=== PATIENT | female | born 1990 | race Caucasian/White ===

== ENCOUNTER → 2019-11-05 12:38 | Outpatient (CLI) | payer OTHER, MEDICAID, SELFPAY ==
[2019-11-05 13:53] LABS: Add Manual Diff / Slide Review NO; Basophils Absolute Auto 100 /uL (0-100); Basophils Percent Auto 0.9 % (0-2); Eosinophils Absolute Auto 100 /uL (0-450); Eosinophils Percent Auto 1.2 % (2-4); Hematocrit 31.2 % (36-46); Hemoglobin 10.5 g/dL (12.0-16.0); Lymphocytes Absolute Auto 2700 /uL (1100-4500); Lymphocytes Percent Auto 26.2 % (25-40); Mean Corpuscular HGB Conc 33.7 % (30-36); Mean Corpuscular Hemoglobin 24.1 PG (26-34); Mean Corpuscular Volume 71.5 fL (80-100); Monocytes Absolute Auto 600 /uL (0-900); Monocytes Percent Auto 5.7 % (3-14); Neutrophils Absolute Auto 6800 /uL (1500-7000); Platelet Count 290 X10^3/uL (150-400); Red Blood Cell Count 4.36 X10^6/uL (4.0-5.2); Red Cell Distribution Width 15.7 % (11.6-14.8); White Blood Cell Count 10.3 X10^3/uL (4.5-11.0)
[2019-11-05 14:46] LABS: Bilirubin Urine UA NEGATIVE (NEGATIVE); Color Urine UA YELLOW; Glucose Urine UA NEGATIVE (Negative); Ketones Urine UA NEGATIVE (NEGATIVE); Leukocyte Esterase Urine UA NEGATIVE (NEGATIVE); Nitrite Urine UA NEGATIVE (Negative); Occult Blood Urine UA NEGATIVE (Negative); Protein Urine UA NEGATIVE (Negative); Urobilinogen Urine UA 0.2 E.U./dL (0.2)
[2019-11-05 14:54] LABS: Appearance Urine UA CLOUDY
[2019-11-05 15:58] LABS: Hepatitis B Surface Antigen NEGATIVE s/c (NEGATIVE); Rubella Antibody IgG 15.7 IU/mL (>15)
[2019-11-05 16:12] LABS: HIV 1 & 2 Ab/Ag 4th Gen Combo NEGATIVE (NEGATIVE); Hep C Virus Ab w/Reflex Quant NEGATIVE s/c (NEGATIVE)
[2019-11-07 18:59] LABS: RPR Screen Nonreactive (Nonreactive)
== END ==
PROVIDERS: PCP Family Medicine; Visit Provider Family Medicine
DX: Z34.82 Encounter for supervision of other normal pregnancy, second trimester (principal)
CPT/HCPCS: 36415; 80055; 81003; 86787; 86803; 86850; 86900; 86901; 87086; 87389

== ENCOUNTER → 2019-12-06 12:01 | Outpatient (CLI) | payer OTHER, MEDICAID, SELFPAY ==
--- NOTE | 2019-12-06 12:04 | DI.US.S_ITS ---
PROCEDURE: US OB >= 14 WEEKS FETUS INDICATIONS: ANATOMY OUTSIDE/PRIOR DATING DATA: Last menstrual period (LMP): 07/08/19. LMP-based estimated date of delivery (BECKI): 04/13/20. First dating scan (date and location): 12/06/19. Estimated date of delivery (BECKI) from first dating scan: 04/04/20. TECHNIQUE: Real-time scanning was performed of the fetus, with image documentation and biometric measurements. Endovaginal scanning: Not performed COMPARISON: None. FINDINGS: General: A single living intrauterine gestation is present. Presentation: Vertex. Placenta: Placental position is anterior, without previa. Amniotic fluid index: 14.8 cm, normal range is 5-24 cm. heart rate: 145 beats per minute. Maternal cervical canal: 3.7 cm long. Normal lower limit is 2.5 cm. biometrics: Biparietal diameter: 5.5 cm, 22 weeks 3 days Head circumference: 20.8 cm, 22 weeks 6 days Abdominal circumference: 18.4 cm, 23 weeks 2 days Femur length: 3.8 cm, 22 weeks 2 days Estimated gestational age from initial scan: not applicable. Composite gestational age from present scan: 22 weeks 6 days Estimated weight and percentile: 536 g, 95th percentile Measurement variability for biometric dating: +/- 7 days from 14 weeks to 15 weeks 6 days gestation, +/- 10 days from 16 weeks to 21 weeks 6 days gestation, +/- 2 weeks from 22 weeks to 27 weeks 6 days gestation, +/- 3 weeks for 28 weeks gestation or later. weight reference: 4500 g or EFW >90/95% is considered macrosomia or large for gestational age. EFW <10% is small for gestational age. EFW 5% or less is considered intra-uterine growth restriction. Anatomic survey: Neuro: Ventricles are non-dilated at less than 10 mm. Cisterna magna is normal at 3-11 mm. Cerebellum is normal in size and morphology. Nuchal skin fold: Normal at less than 6 mm between 14-21 weeks gestational age. Face: Nose/ lips grossly unremarkable . Facial profile not well seen due to gestational position. Spine: No evidence for spina bifida. Heart: 4-chambered heart is present, with normal ventricular outflow tracts. Diaphragm: Diaphragm is intact. Stomach: Left-sided stomach is present. Kidneys: Bilateral prominent renal pelves. Cord: 3-vessel cord has orthotopic insertion. Bladder: Normal in size. Extremities: All 4 extremities identified. IMPRESSION: Single living intrauterine fetus in vertex presentation Interval growth greater than expected based on reported LMP (95th percentile). If further growth assessment is clinically desired, recommend followup 3-4 week examination. facial profile not well-visualized. Bilateral renal pelviectasis. Recommend followup Dictated by: Zeferino Taveras M.D. on 12/06/2019 at 15:32 Approved by: Zeferino Taveras M.D. on 12/06/2019 at 15:37
== END ==
PROVIDERS: Referring Provider Family Medicine; Visit Provider Family Medicine
DX: Z34.92 Encounter for supervision of normal pregnancy, unspecified, second trimester (principal); Z3A.22 22 weeks gestation of pregnancy
CPT/HCPCS: 76811

== ENCOUNTER → 2020-01-17 08:53 | Outpatient (CLI) | payer OTHER, MEDICAID, SELFPAY ==
--- NOTE | 2020-01-17 08:56 | DI.US.S_ITS ---
PROCEDURE: US OB FOLLOW UP INDICATIONS: RE-EVALUATE FACE, KIDNEYS OUTSIDE/PRIOR DATING DATA: Last menstrual period (LMP): 07/08/19 LMP-based estimated date of delivery (BECKI): 04/13/20 First dating scan (date and location): 12/06/19 Estimated date of delivery (BECKI) from first dating scan: 04/04/20 TECHNIQUE: Real-time scanning was performed of the fetus, with image documentation. COMPARISON: [facility], , OB >= 14 WEEKS FETUS, 12/06/2019, 12:17. FINDINGS: A single living intrauterine gestation is present. Presentation: Vertex Placenta: Placental position is anterior, without previa. Amniotic fluid index: 13.7cm, normal range is 5-24 cm. heart rate: 150 beats per minute. Maternal cervical canal: 4.4 cm long. Normal lower limit is 2.5 cm. Estimated gestational age from initial scan: 28 weeks 6 days. face, nose/lips and profile are unremarkable. Persistent promient of bilateral renal pelvis. IMPRESSION: Anatomy is within normal limits. Dictated by: Lorri Bruner M.D. on 01/17/2020 at 12:55 Approved by: Lorri Bruner M.D. on 01/17/2020 at 13:44
[2020-01-17 10:37] LABS: Hematocrit 30.9 % (36-46); Hemoglobin 9.8 g/dL (12.0-16.0)
[2020-01-17 11:01] LABS: GTT (PREG) 1 Hour PP 50gm Dose 162 mg/dL (76-139)
== END ==
PROVIDERS: Referring Provider Family Medicine; Visit Provider Family Medicine
DX: Z36.2 Encounter for other antenatal screening follow-up (principal); Z3A.28 28 weeks gestation of pregnancy
CPT/HCPCS: 36415; 76816; 82950; 85014; 85018

== ENCOUNTER → 2020-02-01 08:53 | Outpatient (CLI) | payer OTHER, MEDICAID, SELFPAY ==
[2020-02-01 10:55] LABS: Glucose Fasting Gestational 82 mg/dL (76-95)
[2020-02-01 12:20] LABS: Glucose 2 Hour Gest 123 mg/dL (76-155)
[2020-02-01 12:22] LABS: Glucose 1 Hour Gest 161 mg/dL (76-180)
[2020-02-01 12:23] LABS: Glucose Tol Interp,Gestational INTERPRETATION
[2020-02-01 14:06] LABS: Glucose 3 Hour Gest 98 mg/dL (76-140)
== END ==
PROVIDERS: Referring Provider Family Medicine; Visit Provider Family Medicine
DX: R73.9 Hyperglycemia, unspecified (principal)
CPT/HCPCS: 36415; 82951; 82952

== ENCOUNTER → 2020-03-17 14:00 | Outpatient (CLI) | payer OTHER, MEDICAID, SELFPAY ==
[2020-03-18 10:19] LABS: Strep Grp B PCR NEG for Grp B Strep
== END ==
PROVIDERS: Visit Provider Family Medicine
DX: Z34.90 Encounter for supervision of normal pregnancy, unspecified, unspecified trimester (principal); Z3A.36 36 weeks gestation of pregnancy
CPT/HCPCS: 87653

== ENCOUNTER 2020-03-24 14:35 | Observation (INO) | payer OTHER, MEDICAID, SELFPAY ==
[2020-03-24 15:21] LABS: Add Manual Diff / Slide Review NO; Basophils Absolute Auto 100 /uL (0-100); Basophils Percent Auto 1.2 % (0-2); Eosinophils Absolute Auto 100 /uL (0-450); Eosinophils Percent Auto 0.9 % (2-4); Hematocrit 26.2 % (36-46); Hemoglobin 8.3 g/dL (12.0-16.0); Lymphocytes Absolute Auto 2200 /uL (1100-4500); Lymphocytes Percent Auto 22.3 % (25-40); Mean Corpuscular HGB Conc 31.7 % (30-36); Mean Corpuscular Volume 59.9 fL (80-100); Monocytes Absolute Auto 700 /uL (0-900); Monocytes Percent Auto 6.9 % (3-14); Neutrophils Absolute Auto 6900 /uL (1500-7000); Neutrophils Percent Auto 68.7 % (50-75); Platelet Count 278 X10^3/uL (150-400); Red Blood Cell Count 4.37 X10^6/uL (4.0-5.2); Red Cell Distribution Width 17.2 % (11.6-14.8); White Blood Cell Count 10.1 X10^3/uL (4.5-11.0)
[2020-03-24 15:32] LABS: Alanine Aminotransferase 11 IU/L (<35); Albumin 3.5 g/dL (3.5-5.0); Albumin Globulin Ratio 1.1 (1.0-2.8); Alkaline Phosphatase 229 U/L (38-126); Aspartate Aminotransferase 22 IU/L (14-36); Bilirubin Total 0.3 mg/dL (0.2-1.3); Blood Urea Nitrogen 7 mg/dL (7-17); Calcium 8.7 mg/dL (8.4-10.2); Carbon Dioxide 20 mmol/L (22-32); Chloride 103 mmol/L (98-107); Estimated Glomerular Filt Rate > 60.0 mL/min (>60); Globulin 3.1 g/dL (1.7-4.1); Glucose 81 mg/dL (70-100); HEMOLYSIS < 15 (0-50); Potassium 4.3 mmol/L (3.4-5.1); Sodium 131 mmol/L (137-145); Total Protein 6.6 g/dL (6.3-8.2)
[2020-03-24 15:39] LABS: Hypochromasia 1+; Microcytosis 2+; Poikilocytosis 1+
[2020-03-24 15:42] LABS: Creatinine Urine Random 59.7 mg/dL; Protein (Total) Urine Random 8 mg/dL (0-12); Protein Creatinine Ratio Urine 0.13 GRAM/24H
[2020-03-24] MEDS: ONDANSETRON 4 MG ODT SL (15:58)
--- NOTE | 2020-03-24 16:51 | PM.OBTRLD ---
Visit Information Visit Information Date of evaluation: 03/24/20 Primary OB Provider: Lashanda Finnegan Reason for Evaluation: Yes non-stress test non-stress test reason: hypertension/pre-eclampsia Comments/Additional reasons for admission: Patient came into the center complaining of a headache and lower extremity edema. Yesterday she had some double vision and her blood pressure with a friend's wrist cuff was 150/99. Today she continues with a headache but no vision changes. Her swelling is about the same. Denies contractions, vaginal bleeding or decreased movement. Vital Signs Vital Signs: Temperature 36.4? Initial blood pressure 144/94 with pulse of 111, repeat 10 minutes later 123/82 with pulse of 115. Subsequent blood pressures were normal and heart rate came down to the 90s. [facility] Medical History Feeling of sadness (Acute) Fracture of left patella (Acute) Surgical History [place] teeth extracted (Acute) Family History Mother Prediabetes Grandfather Acute alcohol abuse Grandmother Alzheimer disease Family/Other No problems noted. Social History marital status: unmarried,living together (Not living together) household members: significant other (Fairly new relationship) education level: high school occupational status: employed ([employer]) current occupational exposures/hazards: No special arjun needs: No Smoking Status: Former smoker (clove cigars X 5 years on and off) alcohol intake: former (Before ) substance use type: marijuana (Before ) Objective Labs Result Diagrams: 03/24/20 15:11 03/24/20 15:11 Labs: Laboratory Results - last 24 hr 03/24/20 03/24/20 03/24/20 15:11 15:11 15:11 WBC 10.1 RBC 4.37 Hgb 8.3 L Hct 26.2 L MCV 59.9 L MCH 19.0 L MCHC 31.7 RDW 17.2 H Plt Count 278 Neut % (Auto) 68.7 Lymph % (Auto) 22.3 L [place] % (Auto) 6.9 Eos % (Auto) 0.9 L Baso % (Auto) 1.2 Neut # (Auto) 6900 Lymph # (Auto) 2200 [place] # (Auto) 700 Eos # (Auto) 100 Baso # (Auto) 100 RBC Morphology Not Reportable Hypochromasia 1+ H Poikilocytosis 1+ H Microcytosis 2+ H Sodium 131 L Potassium 4.3 Chloride 103 Carbon Dioxide 20 L BUN 7 Creatinine 0.54 Estimated GFR > 60.0 BUN/Creatinine Ratio 13.0 Glucose 81 Calcium 8.7 Total Bilirubin 0.3 AST 22 ALT 11 Alkaline Phosphatase 229 H Total Protein 6.6 Albumin 3.5 Globulin 3.1 Albumin/Globulin Ratio 1.1 U Random Total Protein 8 Urine Creatinine 59.7 Protein/Creatinin Ratio 0.13 Evaluation Evaluation Baseline heart rate: 125 Variability: Moderate (11-25) monitor accelerations: Present monitor decelerations: Absent Laboratory results: Laboratory Tests 03/24/20 03/24/20 03/24/20 15:11 15:11 15:11 WBC 10.1 RBC 4.37 Hgb 8.3 L Hct 26.2 L MCV 59.9 L MCH 19.0 L MCHC 31.7 RDW 17.2 H Plt Count 278 Neut % (Auto) 68.7 Lymph % (Auto) 22.3 L Fountain % (Auto) 6.9 Eos % (Auto) 0.9 L Baso % (Auto) 1.2 Neut # (Auto) 6900 Lymph # (Auto) 2200 [place]ountain # (Auto) 700 Eos # (Auto) 100 Baso # (Auto) 100 RBC Morphology Not Reportable Hypochromasia 1+ H Poikilocytosis 1+ H Microcytosis 2+ H Sodium 131 L Potassium 4.3 Chloride 103 Carbon Dioxide 20 L BUN 7 Creatinine 0.54 Estimated GFR > 60.0 BUN/Creatinine Ratio 13.0 Glucose 81 Calcium 8.7 Total Bilirubin 0.3 AST 22 ALT 11 Alkaline Phosphatase 229 H Total Protein 6.6 Albumin 3.5 Globulin 3.1 Albumin/Globulin Ratio 1.1 U Random Total Protein 8 Urine Creatinine 59.7 Protein/Creatinin Ratio 0.13 Diagnosis, Plan/Disposition Final Diagnosis (1) 37 weeks gestation of : Status: Acute Plan/Disposition Plan: 30 year old at 37 weeks gestation with symptoms concerning for pre-eclampsia. Initial blood pressure was mildly elevated however repeat improved. Pre-eclampsia labs normal however patient was quite anemic. She has not been taking her vitamin or iron, only folate. She was instructed to start iron twice a day for the remainder of the . Return precautions given. Follow up as scheduled in three days or sooner if needed. OB Disposition: home
== END 2020-03-24 16:58 | disposition home or self-care (01) ==
PROVIDERS: Admitting Provider Family Medicine; Referring Provider Family Medicine; Visit Provider Family Medicine
DX: O13.3 Gestational [pregnancy-induced] hypertension without significant proteinuria, third trimester (principal); O99.013 Anemia complicating pregnancy, third trimester; R51 Headache; Z3A.37 37 weeks gestation of pregnancy
CPT/HCPCS: 36415; 59025; 59050; 80053; 82570; 84156; 85025; G0378; G0379

== ENCOUNTER → 2020-03-27 07:57 | Outpatient (CLI) | payer OTHER, MEDICAID, SELFPAY ==
[2020-03-27 09:19] LABS: Ferritin 6 ng/mL (6-137)
== END ==
PROVIDERS: Visit Provider Family Medicine
DX: O99.019 Anemia complicating pregnancy, unspecified trimester (principal)
CPT/HCPCS: 82728

== ENCOUNTER → 2020-03-27 12:40 | Outpatient (CLI) | payer OTHER, MEDICAID, SELFPAY ==
--- NOTE | 2020-03-27 12:41 | DI.US.S_ITS ---
PROCEDURE: US OB FOLLOW UP INDICATIONS: FOLLOW UP GROWTH AND PYLECTASIS OUTSIDE/PRIOR DATING DATA: Last menstrual period (LMP): 07/08/19 LMP-based estimated date of delivery (BECKI): 04/13/20 First dating scan (date and location): 12/06/19 Estimated date of delivery (BECKI) from first dating scan: 04/04/20. TECHNIQUE: Real-time scanning was performed of the fetus, with image documentation and biometric measurements. Endovaginal scanning: No COMPARISON: [facility], OB FOLLOW UP, 01/17/2020, 10:08. FINDINGS: General: A single living intrauterine gestation is present. Presentation: Vertex. Placenta: Placental position is anterior, without previa. Amniotic fluid index: 11.1 cm, normal range is 5-24 cm. heart rate: 135 beats per minute. Maternal cervical canal: 3.8 cm long. Normal lower limit is 2.5 cm. biometrics: Biparietal diameter: 38 weeks 0 days Head circumference: 39 weeks 5 days Abdominal circumference: 36 weeks 6 days Femur length: 37 weeks 1 day Estimated gestational age from initial scan: 38 weeks 6 days Composite gestational age from present scan: 30 weeks 0 days Estimated weight and percentile: 3196 g; 31st percentile Measurement variability for biometric dating: +/- 7 days from 14 weeks to 15 weeks 6 days gestation, +/- 10 days from 16 weeks to 21 weeks 6 days gestation, +/- 2 weeks from 22 weeks to 27 weeks 6 days gestation, +/- 3 weeks for 28 weeks gestation or later. weight reference: 4500 g or EFW >90/95% is considered macrosomia or large for gestational age. EFW <10% is small for gestational age. EFW 5% or less is considered intra-uterine growth restriction. Other: Renal pelvis within normal limits bilaterally. IMPRESSION: 1. Normal interval growth. 2. Renal pelvis within normal limits measuring up to 6 mm on the right and 4.4 mm on the left. Dictated by: Mango Bahena [facility] Interpreted: Adolfo Rae MD on 03/27/2020 at 16:35 Approved by: Adolfo Rae M.D. on 03/27/2020 at 17:39
== END ==
PROVIDERS: PCP Family Medicine; Referring Provider Family Medicine; Visit Provider Family Medicine
DX: O35.8XX0 Maternal care for other (suspected) fetal abnormality and damage, not applicable or unspecified (principal); Z3A.38 38 weeks gestation of pregnancy
CPT/HCPCS: 76816

== ENCOUNTER → 2020-03-27 15:13 | Oncology outpatient (ONC) | payer OTHER, MEDICAID, SELFPAY ==
[2020-03-27] MEDS: IRON SUCROSE 200 MG in SODIUM CHLORIDE 0.9% 100 ML 220 ML IV (15:29)
[2020-03-27 15:33] VITALS: BP 144/86; PULSE 125; RESP 18; TEMP 36.9; O2SAT 99
== END ==
LOC: ONC 15:14
PROVIDERS: PCP Family Medicine; Referring Provider Family Medicine; Visit Provider Family Medicine
DX: O99.013 Anemia complicating pregnancy, third trimester (principal); O35.8XX0 Maternal care for other (suspected) fetal abnormality and damage, not applicable or unspecified; D50.9 Iron deficiency anemia, unspecified; Z3A.37 37 weeks gestation of pregnancy
CPT/HCPCS: 76816; 82728; 96365; J1756

== ENCOUNTER 2020-04-06 12:00 | Outpatient (CLI) | payer OTHER, MEDICAID, SELFPAY ==
[2020-04-06 12:31] LABS: Add Manual Diff / Slide Review NO; Basophils Absolute Auto 100 /uL (0-100); Basophils Percent Auto 1.5 % (0-2); Eosinophils Absolute Auto 0 /uL (0-450); Eosinophils Percent Auto 0.6 % (2-4); Hematocrit 26.6 % (36-46); Hemoglobin 8.4 g/dL (12.0-16.0); Lymphocytes Absolute Auto 1900 /uL (1100-4500); Lymphocytes Percent Auto 26.8 % (25-40); Mean Corpuscular HGB Conc 31.8 % (30-36); Mean Corpuscular Hemoglobin 19.1 PG (26-34); Mean Corpuscular Volume 60.2 fL (80-100); Monocytes Absolute Auto 500 /uL (0-900); Monocytes Percent Auto 7.3 % (3-14); Neutrophils Absolute Auto 4600 /uL (1500-7000); Neutrophils Percent Auto 63.8 % (50-75); Platelet Count 236 X10^3/uL (150-400); Red Blood Cell Count 4.42 X10^6/uL (4.0-5.2); Red Cell Distribution Width 18.8 % (11.6-14.8); White Blood Cell Count 7.2 X10^3/uL (4.5-11.0)
[2020-04-06 12:42] LABS: Alanine Aminotransferase 11 IU/L (<35); Albumin 3.5 g/dL (3.5-5.0); Albumin Globulin Ratio 1.3 (1.0-2.8); Alkaline Phosphatase 233 U/L (38-126); Aspartate Aminotransferase 20 IU/L (14-36); BUN Creatinine Ratio 11.3 (6-22); Bilirubin Total 0.4 mg/dL (0.2-1.3); Blood Urea Nitrogen 6 mg/dL (7-17); Calcium 8.7 mg/dL (8.4-10.2); Carbon Dioxide 21 mmol/L (22-32); Chloride 104 mmol/L (98-107); Estimated Glomerular Filt Rate > 60.0 mL/min (>60); Globulin 2.8 g/dL (1.7-4.1); Glucose 78 mg/dL (70-100); HEMOLYSIS < 15 (0-50); Potassium 4.1 mmol/L (3.4-5.1); Sodium 132 mmol/L (137-145); Total Protein 6.3 g/dL (6.3-8.2)
[2020-04-06 12:49] LABS: Anisocytosis 1+
[2020-04-06 12:50] LABS: Hypochromasia 1+; Microcytosis 2+; Poikilocytosis 1+
--- NOTE | 2020-04-06 12:59 | PM.OBHP.1 ---
OB HPI Date/Time Date of admission: 04/06/20 Date Patient Seen: 04/06/20 Time Patient Seen: 12:59 History of Present Condition : 1 Para: 0 Estimated Date of Delivery: 04/13/20 Estimated Gestational Age (weeks): 39 Narrative: Tenisha Hernandez is a 30 year old at 39 weeks gestation. She presented for her regular clinic appointment today and was found to be quite hypertensive with an initial blood pressure of 162/96. Repeat returned at 138/100. She has developed significant edema in her feet and ankles since last visit but denies headache, vision changes or abdominal pain. She has been feeling well otherwise. Reports good movement and denies leaking or bleeding. complicated by anemia with difficulty taking iron supplements. She received an iron infusion 2 weeks ago and noted that she felt very good afterward. Dating is based on LMP as she declined a first-trimester ultrasound. There was some discrepancy between her LMP and dating based on second-trimester ultrasound however not enough to change her due date. Ultrasound was significant for mild pyelectasis which resolved on repeat imaging. Indications Indication for induction OB: other (Gestational hypertension) History of Present care: good care, initiated at week # (15), number of visits (8) and pounds weight gain (11) Dating criteria: based on LMP only Ultrasounds: abnormal US findings ( pyelectasis, resolved on follow-up imaging) Obstetrical complications: gestational hypertension and other (Anemia) Preadmission Labs Blood type: O (+) positive -: Antibody screen: negative, GBS status: negative, HBsAG: negative, HIV: negative and RPR/VDLR: negative -: Rubella: immune and Varicella: immune HCT: 31.2 HCAB: negative Urine: Negative 1 hr GTT: 162 3 hr GTT: 1 hr (161), 2 hr (123) and 3 hr (98) Fasting blood glucose: 82 Evaluation Evaluation Baseline heart rate: 120 Variability: Moderate (11-25) monitor accelerations: Present monitor decelerations: Absent Category of Tracing: I Cervical dilation (cm): 1 Cervical effacement (%): 60 station: -2 Laboratory results: Laboratory Tests 04/06/20 04/06/20 12:15 12:15 WBC 7.2 RBC 4.42 Hgb 8.4 L Hct 26.6 L MCV 60.2 L MCH 19.1 L MCHC 31.8 RDW 18.8 H Plt Count 236 Neut % (Auto) 63.8 Lymph % (Auto) 26.8 Bledsoe % (Auto) 7.3 Eos % (Auto) 0.6 L Baso % (Auto) 1.5 Neut # (Auto) 4600 Lymph # (Auto) 1900 Bledsoe # (Auto) 500 Eos # (Auto) 0 Baso # (Auto) 100 RBC Morphology See below Hypochromasia 1+ H Poikilocytosis 1+ H Anisocytosis 1+ H Microcytosis 2+ H Sodium 132 L Potassium 4.1 Chloride 104 Carbon Dioxide 21 L BUN 6 L Creatinine 0.53 Estimated GFR > 60.0 BUN/Creatinine Ratio 11.3 Glucose 78 Calcium 8.7 Total Bilirubin 0.4 AST 20 ALT 11 Alkaline Phosphatase 233 H Total Protein 6.3 Albumin 3.5 Globulin 2.8 Albumin/Globulin Ratio 1.3 PFSH Medical History Feeling of sadness (Acute) Fracture of left patella (Acute) Surgical History [place] teeth extracted (Acute) Family History Mother Prediabetes Grandfather Acute alcohol abuse Grandmother Alzheimer disease Family/Other No problems noted. Social History marital status: unmarried,living together (Not living together) household members: significant other (Fairly new relationship) education level: high school occupational status: employed ([employer]) current occupational exposures/hazards: No special arjun needs: No Smoking Status: Former smoker (clove cigars X 5 years on and off) alcohol intake: former (Before ) substance use type: marijuana (Before ) Meds Home Medications and Allergies Allergies Allergy/AdvReac Type Severity Reaction Status Date / Time No Known Drug Allergies Allergy Verified 03/17/20 13:28 Review of Systems Review of Systems ROS: Yes All systems reviewed with the patient and are negative except as otherwise documented Exam Vital Signs (past 8 hours): Blood pressures range 130s to 140s over 80s Const General: healthy appearing and comfortable HENMT Head: normal to inspection Ears: hearing grossly normal bilaterally Nose: external nose normal Face and sinus: normal facial exam Mouth: oral mucosae normal Eyes General: appearance normal, both eyes and all related structures Neck Neck: normal visual inspection Resp Effort & Inspection: normal respiratory effort Cardio Rate: regular rate Rhythm: regular rhythm GI Other: Gravid External Female Exam: normal external appearance Manual OB Exam: dilated 1, effaced 50% (60) and station -2 Uterus Location (Fundal Height): 39 Presentation: vertex Estimated Weight (lbs): 7 Back/Spine/Pelvis Back: normal to inspection Skin General: no rashes or lesions noted Extrem General: normal to inspection, no pedal edema and edema (1+ bilaterally) Objective Labs Result Diagrams: 04/06/20 12:15 04/06/20 12:15 Labs: Laboratory Results - last 24 hr 04/06/20 04/06/20 12:15 12:15 WBC 7.2 RBC 4.42 Hgb 8.4 L Hct 26.6 L MCV 60.2 L MCH 19.1 L MCHC 31.8 RDW 18.8 H Plt Count 236 Neut % (Auto) 63.8 Lymph % (Auto) 26.8 Bledsoe % (Auto) 7.3 Eos % (Auto) 0.6 L Baso % (Auto) 1.5 Neut # (Auto) 4600 Lymph # (Auto) 1900 Bledsoe # (Auto) 500 Eos # (Auto) 0 Baso # (Auto) 100 RBC Morphology See below Hypochromasia 1+ H Poikilocytosis 1+ H Anisocytosis 1+ H Microcytosis 2+ H Sodium 132 L Potassium 4.1 Chloride 104 Carbon Dioxide 21 L BUN 6 L Creatinine 0.53 Estimated GFR > 60.0 BUN/Creatinine Ratio 11.3 Glucose 78 Calcium 8.7 Total Bilirubin 0.4 AST 20 ALT 11 Alkaline Phosphatase 233 H Total Protein 6.3 Albumin 3.5 Globulin 2.8 Albumin/Globulin Ratio 1.3 Assessment and Plan Assessment and Plan Assessment and Plan narrative: Patient is a 30-year-old at 39 weeks gestation with gestational hypertension. Labs reassuring against preeclampsia. GBS negative. Rapid COVID-19 negative. has been complicated by severe anemia with iron infusion at the end of . Patient agrees to blood transfusion if needed. Will admit for induction for gestational hypertension. Discuss risks associated with induction such as , operative vaginal delivery, distress and long labor. Patient was given the opportunity to ask questions and all questions were answered. Consent signed and placed in the chart. Plan is for Cervidil overnight followed by Pitocin in the morning. Epidural upon request.
[2020-04-06 14:33] LABS: COVID19 -Nasal RAPID Negative (Negative)
== END 2020-04-06 13:35 | disposition home or self-care (01) ==
LOC: LABOR 12:40 → OB 04-07 10:54
PROVIDERS: PCP Family Medicine; Referring Provider Family Medicine; Visit Provider Family Medicine
DX: O13.3 Gestational [pregnancy-induced] hypertension without significant proteinuria, third trimester (principal); O99.013 Anemia complicating pregnancy, third trimester; Z3A.39 39 weeks gestation of pregnancy
CPT/HCPCS: 36415; 59025; 59050; 80053; 85025; 87635; G0378; G0379

== ENCOUNTER 2020-04-06 20:10 | Inpatient (IN) | payer OTHER, MEDICAID, SELFPAY ==
[2020-04-06 21:22] VITALS: BP 133/84
[2020-04-07] MEDS: DINOPROSTONE VAG (CERVIDIL) 10 MG VAG
--- NOTE | 2020-04-07 08:10 | PM.OBPNLAB ---
Date/Time Date Patient Seen: 04/07/20 Time Patient Seen: 07:45 Pain Control Comments: Patient denies complaints. She has been feeling crampy all night and only slept a few hours. Denies leaking or bleeding. Denies headache or vision changes. Edema is little better this morning but still very much there. Exam General: Sitting up in bed, comfortable Heart: Regular rate and rhythm, no murmurs Lungs: Clear to auscultation bilaterally : SVE below Extremities: 1+ edema bilaterally Pelvic Exam Dilation (cm): 2 Effacement (%): 75 station: -2 Amniotic membrane status: Intact Contractions Monitor mode: External Contraction frequency (min): 3 Contraction intensity: Mild Status status: Category l Heart Rate Baseline: 130 Monitor Accelerations: Present Monitor Decelerations: Absent Monitor Variability: Moderate Assessment and Plan Plan: begin patient augmentation Comments: Patient is a 30-year-old at 39 weeks and 1 day gestation here for induction for gestational hypertension. Blood pressures were normal overnight and she is asymptomatic. On exam this morning Cervidil was found low in the vagina so was removed. Torres score this morning is 7. Will start Pitocin.
[2020-04-07] MEDS: LACTATED RINGERS 1,000 ML 100 ML IV ×2 (08:47→17:46)
[2020-04-07] MEDS: OXYTOCIN PREMIX 30 UNIT/500 ML PLAST..BAG IV (08:48)
--- NOTE | 2020-04-07 13:01 | PM.OBPNLAB ---
Date/Time Date Patient Seen: 04/07/20 Time Patient Seen: 12:45 Pain Control Pain control: tolerating well Pelvic Exam Dilation (cm): 3 Effacement (%): 80 station: -2 Amniotic membrane status: Ruptured (AROM small amount of clear fluid) Contractions Monitor mode: External Pitocin rate (mU/min): 18 Contraction frequency (min): 2 Contraction pattern: Regular Contraction intensity: Mild Status status: Category l Heart Rate Baseline: 125 Monitor Accelerations: Present Monitor Decelerations: Absent Monitor Variability: Moderate Assessment and Plan Assessment: induction ongoing Plan: continuous present management Comments: AROM for scant amount of clear fluid. Limit cervical exams. Continue pitocin. Patient desires natural childbirth.
--- NOTE | 2020-04-07 16:59 | PM.OBPNLAB ---
Date/Time Date Patient Seen: 04/07/20 Time Patient Seen: 16:50 Pain Control Pain control: tolerating well Comments: More uncomfortable but tolerating labor well. Leaking small amounts of fluid. Pelvic Exam Dilation (cm): 5 Effacement (%): 90 station: -2 Amniotic membrane status: Ruptured (AROM small amount of clear fluid) Contractions Monitor mode: External Pitocin rate (mU/min): 18 Contraction frequency (min): 3 Contraction pattern: Regular Status status: Category l Heart Rate Baseline: 120 Monitor Accelerations: Present Monitor Decelerations: Absent Monitor Variability: Moderate Assessment and Plan Assessment: active labor Plan: continuous present management Comments: Patient is coping well and entering active labor. Repeat AROM with small amount of clear fluid.
--- NOTE | 2020-04-07 22:18 | PM.OBPNLAB ---
Date/Time Date Patient Seen: 04/07/20 Time Patient Seen: 22:18 Pain Control Comments: RN went in for SVE however patient declines wanting to rest and wait. Contractions Monitor mode: External Pitocin rate (mU/min): 22 Contraction frequency (min): 3 Contraction pattern: Regular Status status: Category l Heart Rate Baseline: 130 Monitor Accelerations: Present Monitor Decelerations: Early Monitor Variability: Moderate Assessment and Plan Assessment: induction ongoing Comments: Patient changed from 5 to 6 cm over three hours. Last SVE 2 hours ago. Plan was to check now and if unchanged place IUPC however patient would like to wait longer. VSS without fevers, FHT cat I. She has been on pitocin for 13 hours up to 22 milliunits/min with a regular contraction pattern but slow cervical change. Will shut off pitocin for 1 hour to reset receptors then restart at 9 milliunits/min. Titrate to regular contractions every 2-3 min. Check SVE after 2 hours of regular contractions. If cervix unchanged, will then place IUPC. Will reassess sooner if patient becomes febrile or FHT become cat II.
[2020-04-08] VITALS (7 sets, daily range): BP systolic 103–177; BP diastolic 58–77; PULSE 79–86; RESP 15–19; TEMP 37.2–37.3; O2SAT 94–97
[2020-04-08] MEDS: FENT 2MCG/ML BUPIV 0.125% EPI 200 MCG/100 ML PLAST..BAG 10 MCG EPIDURAL ×2 (01:12→12:11)
--- NOTE | 2020-04-08 05:52 | P.PNOB_ITS ---
Date/Time Date Patient Seen: 04/08/20 Time Patient Seen: 05:30 Pain Control Pain control: tolerating well and epidural Pelvic Exam Dilation (cm): 10 Effacement (%): 100 station: -1 Amniotic membrane status: Ruptured (AROM small amount of clear fluid) Contractions Monitor mode: External Pitocin rate (mU/min): 21 Contraction frequency (min): 3 Contraction pattern: Regular Status status: Category l Heart Rate Baseline: 125 Monitor Accelerations: Present Monitor Variability: Moderate Assessment and Plan Assessment: active labor Plan: continuous present management Comments: Patient is now complete after slow cervical change overnight. Suspect fetus is asynclitic given persistent -1 station. Patient has remained afebrile and normotensive and would like to avoid a if possible. heart tones have primarily been category 1 with frequent early decelerations though she has had a couple late decelerations that resolve with position change. Will begin pushing and turning with pushing to help with descent. If no significant descent over the next hour will re-evaluate need for possible c- section delivery.
--- NOTE | 2020-04-08 07:39 | PM.OBPNLAB ---
Date/Time Date Patient Seen: 04/08/20 Time Patient Seen: 07:30 Pain Control Pain control: tolerating well Pelvic Exam Dilation (cm): 10 Effacement (%): 100 station: 0 Amniotic membrane status: Ruptured (AROM small amount of clear fluid) Contractions Monitor mode: External Pitocin rate (mU/min): 21 Contraction frequency (min): 3 Contraction pattern: Regular Contraction intensity: Mild Status status: Category l Heart Rate Baseline: 120 Monitor Accelerations: Present Monitor Decelerations: Variable (with pushing) Monitor Variability: Moderate Assessment and Plan Assessment: active labor Comments: Patient has been pushing for nearly 2 hours with slow descent. Patient is tired as she has been laboring for nearly 24 hours on Pitocin. Discussed options with patient including evaluation for possible operative vaginal delivery versus . Patient very much wants to avoid if at all possible. Consulted with Dr. Hernández for possible operative vaginal delivery verses though I am concerned the fetus is likely too high in the pelvis for operative vaginal delivery. Appreciate recommendations from Dr. Hernández.
--- NOTE | 2020-04-08 08:19 | PM.PREOP ---
Pre-operative Note COVID-19 COVID-19 status: Negative Result date/Date tested (Pos, Neg/Pending): 04/06/20 Interval Note History & Physical reviewed/Exam performed by Physician: Yes Changes to H&P: No
--- NOTE | 2020-04-08 08:20 | PM.OBPNLAB ---
Date/Time Date Patient Seen: 04/08/20 Time Patient Seen: 08:20 Pain Control Comments: Feeling more pain on her right side. Pelvic Exam Dilation (cm): 10 Effacement (%): 100 station: 0 Amniotic membrane status: Ruptured (AROM small amount of clear fluid) Contractions Monitor mode: External Pitocin rate (mU/min): 0 Contraction frequency (min): 3 Contraction pattern: Regular Status status: Category l Heart Rate Baseline: 120 Monitor Accelerations: Present Monitor Decelerations: Late (not recurrent) Assessment and Plan Plan: Comments: Appreciate consultation with Dr. Hernández. Fetus is in the occiput posterior position. Dr. Hernández offered forceps though advised that fetus may be too high to place them. Offered which patient and her partner accept. Discussed the risk of bleeding, infection or injury to surrounding organs (bowel, bladder, ureters). Consent signed and placed in charge. Ancef 2 g prior to surgery. Patient is anemic and accepting of a blood transfusion if needed. Hemorrhage cart will be available in the OR.
[2020-04-08] MEDS: CEFAZOLIN 2 GM/100 ML FROZ.PIGGY IV (08:44)
--- NOTE | 2020-04-08 09:04 | SUR.OPER ---
Supine on Padded OR bed, head on pillow, safety belt at thigh, arms secured on padded arm boards at <90 degrees abduction. Bump under right buttock. Legs uncrossed with pillow under knees, gel pad to heels, tape over blanket to lower legs.
[2020-04-08] MEDS: CARBOPROST 250 MCG/ML AMPUL INJ (09:23)
--- NOTE | 2020-04-08 09:24 | SUR.OPER ---
VIABLE MALE INFANT DELIVERED AT 0903. COED BLOOD AND PLACENTA TO OB WITH RN
--- NOTE | 2020-04-08 09:53 | PM.OP.1 ---
Operative Date/Time/Diagnoses Date of procedure: 04/08/20 Time of procedure: 09:53 Pre-op diagnosis: 2nd stage arrest Post-op diagnosis: same Procedure & Clinicians Procedure: Primary low-transverse section Same procedure as scheduled: Yes Indications: 2nd stage arrest Surgeon: Loly Hernández [place] Auditor: Lashanda Finnegan Click Yes if Unassisted: No Anesthesia Type: Spinal Operative Notes Findings: Normal tubes, ovaries, and uterus. Viable male weighing 7 lb 14 oz Closure Type: primary Specimen(s): none sent Applied: catheter (Barrett) Estimated Blood Loss (mL): 400 Blood products transfused: none Procedure in detail: The patient was brought to the operating room where she underwent a spinal for anesthesia. She was placed in a supine position with a left lateral tilt. A Barrett catheter was in place. Pulsatile stockings were placed and functional throughout the case. 2 g of Ancef were given IV prior to the incision. Warming was in place. The patient was prepped and draped in usual sterile fashion. A low transverse incision was made with a scalpel and the incision was carried down to the fascial layer which was incised transversely with scissors. The midline attachments are superiorly and inferiorly. Some bleeding was controlled Bovie. The rectus muscles were in the midline and the peritoneal incision was made with no damage to internal structures. The peritoneum was incised and superiorly and inferiorly. Bladder blade was placed and a bladder flap was developed and the bladder held away from the lower uterine segment. An incision was made in the uterus with the scalpel and the incision was extended with stretching. The head was elevated out of the abdomen and with fundal pressure the baby was delivered. The was bulb suctioned for clear fluid and handed off to the warmer. Cord blood was collected. The placenta delivered spontaneously with traction. The uterus was cleaned with clean laps. The uterine incision was closed in 2 layers of 0 chromic suture the first a running locking layer the second an imbricating layer. The bladder peritoneum was repaired with 2-0 Vicryl suture. The gutters were cleaned of any remaining fluids and ovaries and tubes were observed to be normal. Adequate hemostasis was noted. The perineum was closed with 2-0 Vicryl suture. The fascia layer was closed with 0 Vicryl suture with 2 stitches. The incision was irrigated and adequate hemostasis noted. The incision was closed with interrupted 3-0 Vicryl sutures and then a subcuticular stitch of 4-0 Vicryl suture. Steri-Strips were placed. The uterus was massaged to remove any clots. The patient went to recovery room in good condition. Counts of instruments and sponges were correct. Complications: none Post-operative Disposition: other ( center) Plan for aftercare: Routine post section care
[2020-04-08] MEDS: LACTATED RINGERS 1,000 ML 100 ML IV (12:11)
[2020-04-08] MEDS: KETOROLAC 30 MG/ML VIAL IV ×2 (15:16→21:26)
[2020-04-08] MEDS: ONDANSETRON 4 MG/2 ML INJ IV (18:39)
[2020-04-09] MEDS: KETOROLAC 30 MG/ML VIAL IV (03:38)
[2020-04-09 06:54] LABS: Add Manual Diff / Slide Review NO; Basophils Absolute Auto 100 /uL (0-100); Basophils Percent Auto 0.4 % (0-2); Eosinophils Absolute Auto 100 /uL (0-450); Eosinophils Percent Auto 0.4 % (2-4); Lymphocytes Absolute Auto 1600 /uL (1100-4500); Lymphocytes Percent Auto 9.2 % (25-40); Mean Corpuscular HGB Conc 31.4 % (30-36); Mean Corpuscular Hemoglobin 18.9 PG (26-34); Mean Corpuscular Volume 60.1 fL (80-100); Monocytes Absolute Auto 800 /uL (0-900); Monocytes Percent Auto 4.5 % (3-14); Neutrophils Absolute Auto 14500 /uL (1500-7000); Neutrophils Percent Auto 85.5 % (50-75); Platelet Count 207 X10^3/uL (150-400); Red Blood Cell Count 3.45 X10^6/uL (4.0-5.2); Red Cell Distribution Width 19.3 % (11.6-14.8)
[2020-04-09 06:59] LABS: Hematocrit 20.7 % (36-46); Hemoglobin 6.5 g/dL (12.0-16.0)
[2020-04-09] MEDS: PRENATAL VIT,CALC/IRON/FOLIC 1 TABLET 1 TAB PO (07:57)
[2020-04-09] MEDS: OXYCODONE IR 5 MG TABLET PO ×4 (07:57→23:03)
[2020-04-09] MEDS: FERROUS GLUCONATE 324 MG TABLET PO (07:57)
[2020-04-09 09:30] LABS: Anisocytosis 2+; Microcytosis 2+
--- NOTE | 2020-04-09 10:38 | P.PNOB_ITS ---
Subjective - OB Subjective Sebastian baby status: doing well Sebastian feeding status: exclusively breast feeding Date Patient Seen: 04/09/20 Time Patient Seen: 10:38 Interval history: Patient in is post section day 1. She is able to ambulate and urinate post Barrett catheter removal.. No nausea. No headaches, s cotomata, epigastric pain. She only has pain with movement. Exam Vital Signs (past 8 hours): Blood pressure 125/79, pulse of 99, temperature 99.6? Oxygen Delivery Method Room Air Narrative Exam Narrative: Abdomen is soft, nontender. Uterus is firm, at U, appropriately tender. Dressing has old blood but no new blood. Mild lochia. Extremities with edema and nontender Objective Labs Result Diagrams: 04/09/20 06:06 Labs: Laboratory Results - last 24 hr 04/09/20 06:06 WBC 17.0 H RBC 3.45 L Hgb 6.5 L* Hct 20.7 L* MCV 60.1 L MCH 18.9 L MCHC 31.4 RDW 19.3 H Plt Count 207 Neut % (Auto) 85.5 H Lymph % (Auto) 9.2 L [place] % (Auto) 4.5 Eos % (Auto) 0.4 L Baso % (Auto) 0.4 Neut # (Auto) 86851 H Lymph # (Auto) 1600 [place] # (Auto) 800 Eos # (Auto) 100 Baso # (Auto) 100 RBC Morphology See below Anisocytosis 2+ H Microcytosis 2+ H Assessment & Plan Assessment and Plan (1) Delivery by section of full-term : Status: Acute (2) Anemia: Status: Acute Plan day: 1 plan OB: routine postop care Time Spent With Patient Time: Total time spent is greater than 50% in coordination of care (as documented) at patient's floor/unit and/or counseling patient: Time with patient: less than 15 minutes
[2020-04-09] MEDS: IBUPROFEN 600 MG TABLET PO ×3 (11:12→23:06)
[2020-04-09] MEDS: ACETAMINOPHEN 325 MG TABLET 650 MG PO (11:13)
[2020-04-09] MEDS: LANOLIN OINT 7 GM 1 APPLIC TOP (21:25)
[2020-04-09 21:26] VITALS: TEMP 37.7
[2020-04-10 03:15] VITALS: TEMP 37.4
[2020-04-10] MEDS: OXYCODONE IR 10 MG TABLET PO ×2 (03:15→06:59)
[2020-04-10] MEDS: IBUPROFEN 600 MG TABLET PO ×3 (07:00→20:25)
--- NOTE | 2020-04-10 08:11 | PM.OBPN.1 ---
Subjective - OB Subjective Patient comments: no complaints, pain well controlled and tolerating diet baby status: doing well and nursing well feeding status: exclusively breast feeding Date Patient Seen: 04/10/20 Time Patient Seen: 07:30 Interval history: Overnight patient had some lightheadedness and mild shortness of breath when up to the bathroom but she also was in severe pain. Blood pressure was elevated at that time though repeat improved. This morning she states her pain is much better when she is resting in bed. She denies shortness of breath or lightheadedness. Vaginal bleeding is light. She is voiding without issue however not yet passing flatus. She is tolerating a diet without nausea or vomiting. is going well. She took a shower and her Aquacel dressing week did became saturated. This was removed by the nurse overnight. Steri-Strips were also removed. Steri-Strips replaced and incision covered with a regular dressing. Exam Vital Signs (past 8 hours): - 04/10/20 03:15 Temperature 99.4 F Oxygen Delivery Method Room Air Temperature 99.4? blood pressure 120/76 heart rate 100 respirations 16 Narrative Exam Narrative: General: Awake and alert, no acute distress. HEENT: NCAT, EOMI, moist oral mucosa CV: Regular rate and rhythm, no murmurs, rubs or gallops Lungs: CTAB, no wheezes, rales, or rhonchi Abdomen: Lower abdominal incision healing as expected without erythema or exudate. Steri-Strips in place. No drainage. Abdomen is soft and nontender with active bowel tones. Uterus firm 1 cm below umbilicus. Extremities: Warm, 1+ edema bilaterally Objective Labs Result Diagrams: 04/09/20 06:06 Labs: Laboratory Results - last 24 hr 04/09/20 06:06 RBC Morphology See below Anisocytosis 2+ H Microcytosis 2+ H Assessment & Plan Assessment and Plan (1) Delivery by section of full-term infant: Status: Acute (2) Anemia: Status: Acute Plan day: 2 plan OB: routine postop care Comments: 30-year-old day 2 after primary low-transverse section for arrest of descent. was complicated by anemia requiring iron infusion at the end of . She is anemic as expected after . Offered blood transfusion given severity of anemia with questionable symptoms last night while ambulating (shortness of breath and lightheadedness). Patient states she feels well this morning and would like to wait on a blood transfusion. She is open to another iron infusion however since she tolerated this well during her . She declined her iron supplement yesterday given the amount of vomiting she had with iron during her . We will give a dose of Venofer today and hold off on the blood transfusion. Anticipate discharge home tomorrow if she continues to do well. Infant must stay another night due to excessive weight loss but hopefully will be ready to discharge home tomorrow too. Time Spent With Patient Time: Total time spent is greater than 50% in coordination of care (as documented) at patient's floor/unit and/or counseling patient: Time with patient: 15-24 minutes
[2020-04-10] MEDS: IRON SUCROSE 200 MG in SODIUM CHLORIDE 0.9% 100 ML 220 ML IV (09:10)
[2020-04-10] MEDS: OXYCODONE IR 5 MG TABLET PO ×2 (11:19→23:00)
[2020-04-10] MEDS: DOCUSATE 250 MG CAPSULE PO (11:20)
[2020-04-10] MEDS: PRENATAL VIT,CALC/IRON/FOLIC 1 TABLET 1 TAB PO (11:20)
[2020-04-10 15:00] VITALS: BP 135/94; PULSE 90; RESP 18; TEMP 37.5
[2020-04-10 16:48] VITALS: TEMP 38.8
[2020-04-10] MEDS: ACETAMINOPHEN 325 MG TABLET 650 MG PO (16:48)
[2020-04-10 20:25] VITALS: TEMP 37.4
[2020-04-10 23:00] VITALS: TEMP 37.4
[2020-04-11] MEDS: IBUPROFEN 600 MG TABLET PO ×2 (03:43→09:08)
--- NOTE | 2020-04-11 08:02 | P.DS_ITS ---
Discharge Providers Provider Date of admission: 04/06/20 20:10 Discharge Date: 04/11/20 Primary care physician: Lashanda Finnegan DO Consults: 04/08/20 11:08 Consult to [employer] Manager Routine Comment: Discharge provider: Lashanda Finnegan DO Summary Hospital Course Date Patient Seen: 04/11/20 Time Patient Seen: 12:45 Procedures: Primary low-transverse section Hospital Course: Patient is a 30-year-old after primary low-transverse section for arrest of second stage of labor on 04/08/20. Patient came in for in duction due to gestational hypertension. She received Cervidil followed by Pitocin. Labor was prolonged with slow cervical change. She received an epidural with good pain control. She was complete and pushed for 2 hours with little descent. Fetus was found to be in the occiput posterior position. Dr. Hernández was consulted for possible forceps verses . Patient elected for rather than a trial of forceps. was uncomplicated and infant was vigorous at delivery. course was complicated by anemia. Patient was anemic throughout her and received an iron infusion a couple weeks prior to delivery as she is unable to tolerate oral iron. She did not lose an excessive amount of blood with the but given her severe anemia to begin with, her H&H postoperatively was quite low. Postop day 1 hemoglobin was 6.5 and hematocrit 20.7. Patient was offered a blood transfusion given the severity of anemia which she declined stating she felt well all things considered. She did not have significant tachycardia, shortness of breath or lightheadedness. She did consent to an iron infusion since that went well during her . She received a dose of Venofer. Several hours after the iron infusion she spiked temperature of 101.9? which was felt to be due to the iron infusion given lack of other signs of infection (no progressive abdominal tenderness, dysuria, breast tenderness, cough or shortness of breath). Temperatures were monitored closely. Day of discharge she had one temperature to 100.5 however recheck came down to 99.5 without intervention. Labs were done as a precaution and were reassuring. CBC was significant for normal white blood cell count and improvement in H&H. She also had a couple mildly elevated blood pressures which came down without intervention. CMP was unremarkable and patient did not have a ny symptoms of preeclampsia. With respect to her anemia, patient was encouraged to try oral iron again. She has multiple forms of iron at home and states she will try which she has and see if she can keep it down. If she is unable to tolerate oral iron still, we will need to set her up for at least 1 more iron infusion. Patient had some difficulty with breast-feeding in the hospital and was seen by . with latching feed well however she was unable to express more than drops of milk by the time of discharge. had excessive weight loss so was started on formula supplementation via SNS. This was going well at the time of discharge and was gaining weight. Patient lives on [facility] and coming off the [place], particularly around the holiday weekend, is challenging. Ideally we would like to see year on 04/14/20 for an incision check however this is really not feasible for her and her partner. She was counseled to call for fevers, erythema of her incision, abdominal pain or bleeding through more than a pad an hour. She is scheduled for an incision check with Dr. Hernández on 04/17/20 as I will be out of the office. Peripartum Data Infant Delivery Method: Section [place] 1: Gender: Male Disposition of : home Discharge Diagnosis (1) Delivery by section of full-term infant: Status: Acute (2) Anemia: Status: Acute (3) 39 weeks gestation of : Status: Acute Time Spent with Patient Time attestation: Total time spent providing and/or coordinating discharge services: Objective Labs Result Diagrams: 04/11/20 10:47 04/11/20 10:47 Exam Vital Signs (past 8 hours): Oxygen Delivery Method Room Air Temperature 99.5? blood pressure 135/94 heart rate 90 respirations 18 Narrative Exam Narrative: General: Awake and alert, no acute distress. HEENT: NCAT, EOMI, moist oral mucosa CV: Regular rate and rhythm, no murmurs, rubs or gallops Lungs: CTAB, no wheezes, rales, or rhonchi Abdomen: Steri-Strips in place over incision without drainage or erythema. Bowel tones active. Abdomen is soft and nontender. Uterus firm 1 cm below umbilicus. Extremities: Warm, 1+ pitting edema bilaterally. 2+ pedal pulses. Discharge Plan Discharge Plan Patient Disposition: Home Discharge orders & Medications Prescriptions: New ibuprofen 600 mg Tablet 600 mg PO Q6HR PRN (Reason: Fever/Mild Pain (1-3)) Qty: 30 RF: 0 docusate sodium 250 mg Capsule 250 mg PO DAILY Qty: 30 RF: 0 oxycodone 5 mg Tablet 5 mg PO Q4HR PRN (Reason: Pain, Moderate (4-6)) Qty: 20 RF: 0 ferrous gluconate 324 mg (38 mg iron) Tablet 324 mg PO BID Qty: 60 RF: 0 Prenatabs Rx 29 mg iron- 1 mg Tablet 1 tab PO DAILY Qty: 30 RF: 0 Discontinued pyridoxine (vitamin B6) 25 mg tablet 25 mg PO DAILY RF: 0 Unisom (doxylamine) 25 mg tablet 25 mg PO BEDTIME PRN (Reason: Insomnia) RF: 0 Follow up/Referrals: Loly Hernández MD [Physician] - 04/17/20 11:15 am Lashanda Finnegan DO [Primary Care Provider] - (office will call with an appointment) Visit Report/Discharge Packet Instructions: DI for Visit Report Forms: Patient Portal/API, Stroke Signs & Symptoms Discharge Data Primary Care Provider: Lashanda Finnegan Discharges patient from system. Discharge Date/Time: 04/11/20 14:30
[2020-04-11] MEDS: PRENATAL VIT,CALC/IRON/FOLIC 1 TABLET 1 TAB PO (09:07)
[2020-04-11] MEDS: DOCUSATE 250 MG CAPSULE PO (09:07)
[2020-04-11 10:58] LABS: Add Manual Diff / Slide Review NO; Basophils Absolute Auto 100 /uL (0-100); Basophils Percent Auto 0.9 % (0-2); Eosinophils Absolute Auto 200 /uL (0-450); Eosinophils Percent Auto 1.8 % (2-4); Hematocrit 22.5 % (36-46); Hemoglobin 7.1 g/dL (12.0-16.0); Lymphocytes Absolute Auto 1700 /uL (1100-4500); Lymphocytes Percent Auto 19.5 % (25-40); Mean Corpuscular HGB Conc 31.7 % (30-36); Mean Corpuscular Hemoglobin 19.3 PG (26-34); Mean Corpuscular Volume 60.9 fL (80-100); Monocytes Absolute Auto 500 /uL (0-900); Monocytes Percent Auto 5.5 % (3-14); Neutrophils Absolute Auto 6400 /uL (1500-7000); Neutrophils Percent Auto 72.3 % (50-75); Platelet Count 325 X10^3/uL (150-400); Red Cell Distribution Width 19.5 % (11.6-14.8); White Blood Cell Count 8.9 X10^3/uL (4.5-11.0)
[2020-04-11 11:06] LABS: Alanine Aminotransferase 10 IU/L (<35); Albumin 2.9 g/dL (3.5-5.0); Alkaline Phosphatase 154 U/L (38-126); Aspartate Aminotransferase 22 IU/L (14-36); BUN Creatinine Ratio 14.3 (6-22); Bilirubin Total 0.2 mg/dL (0.2-1.3); Blood Urea Nitrogen 8 mg/dL (7-17); Calcium 8.7 mg/dL (8.4-10.2); Carbon Dioxide 26 mmol/L (22-32); Chloride 107 mmol/L (98-107); Estimated Glomerular Filt Rate > 60.0 mL/min (>60); Globulin 2.8 g/dL (1.7-4.1); Glucose 85 mg/dL (70-100); HEMOLYSIS < 15 (0-50); Potassium 3.8 mmol/L (3.4-5.1); Sodium 137 mmol/L (137-145); Total Protein 5.7 g/dL (6.3-8.2)
[2020-04-11 11:22] LABS: Microcytosis 2+
[2020-04-11 11:24] LABS: Anisocytosis 2+; Polychromasia 1+
[2020-04-11 12:29] LABS: Appearance Urine UA CLOUDY; Bilirubin Urine UA NEGATIVE (NEGATIVE); Color Urine UA RED; Glucose Urine UA NEGATIVE (Negative); Ketones Urine UA NEGATIVE (NEGATIVE); Leukocyte Esterase Urine UA 2+ (NEGATIVE); Nitrite Urine UA NEGATIVE (Negative); Occult Blood Urine UA 3+ (Negative); Protein Urine UA 2+ (Negative); Urobilinogen Urine UA 0.2 E.U./dL (0.2)
[2020-04-11 12:39] LABS: Bacteria Urine Many (>30); Culture Indicated Urine Cult Not Indicated; RBC Urine >100/HPF (0-5/HPF); Squamous Epithelial Cell Urine 10-30 /HPF (0-5/HPF); WBC Urine 30-100/HPF (0-5/HPF)
== END 2020-04-11 14:30 | disposition home or self-care (01) | DRG 540 ==
PROVIDERS: Specialist; Admitting Provider Family Medicine; PCP Family Medicine; Referring Provider Family Medicine; Visit Provider Family Medicine
PROC: (CPT 59514; principal; 2020-04-08 09:00)
DX: O13.3 Gestational [pregnancy-induced] hypertension without significant proteinuria, third trimester (principal); O62.1 Secondary uterine inertia; O99.013 Anemia complicating pregnancy, third trimester; D64.9 Anemia, unspecified; Z3A.39 39 weeks gestation of pregnancy; Z37.0 Single live birth
CPT/HCPCS: 01967; 01968; 36415; 59025; 59050; 59514; 76815; 80053; 81001; 85025; 86850; 86900; 86901; 87635; G0379; J0690; J1756; J1885; J2274; J2405; J2590

== ENCOUNTER 2020-05-05 17:05 | Emergency (ER) | payer OTHER, MEDICAID, SELFPAY ==
[2020-05-05] VITALS (9 sets, daily range): BP systolic 101–156; BP diastolic 62–93; PULSE 82–106; RESP 15; TEMP 37.3; O2SAT 100; BMI 31.6
--- NOTE | 2020-05-05 18:03 | PC.NURSE ---
Patient came in with scar in a partially healed state. She has approx 1 cm of absorbable-multifilament, Non dyed Vycril suture protruding through her skin at the middle of her scar. The right lateral side of her incision has an area that is approximately 4x7 cm and is firm to the touch. There is some serous drainage coming from both sides of the suture holes. Her right side ADB is tender upon palpation.
[2020-05-05] MEDS: SODIUM CHLORIDE 0.9% 1,000 ML 1000 ML IV (19:00)
[2020-05-05 19:08] LABS: Add Manual Diff / Slide Review NO; Basophils Absolute Auto 100 /uL (0-100); Basophils Percent Auto 0.9 % (0-2); Eosinophils Absolute Auto 200 /uL (0-450); Eosinophils Percent Auto 1.8 % (2-4); Hematocrit 33.2 % (36-46); Hemoglobin 10.5 g/dL (12.0-16.0); Lymphocytes Absolute Auto 2700 /uL (1100-4500); Lymphocytes Percent Auto 29.9 % (25-40); Mean Corpuscular HGB Conc 31.7 % (30-36); Mean Corpuscular Hemoglobin 20.5 PG (26-34); Mean Corpuscular Volume 64.6 fL (80-100); Monocytes Absolute Auto 700 /uL (0-900); Monocytes Percent Auto 7.3 % (3-14); Neutrophils Absolute Auto 5500 /uL (1500-7000); Neutrophils Percent Auto 60.1 % (50-75); Platelet Count 301 X10^3/uL (150-400); Red Blood Cell Count 5.14 X10^6/uL (4.0-5.2); Red Cell Distribution Width 25.3 % (11.6-14.8); White Blood Cell Count 9.1 X10^3/uL (4.5-11.0)
[2020-05-05 19:16] LABS: Lactate (Lactic Acid) 1.1 mmol/L (0.7-2.1)
--- NOTE | 2020-05-05 19:16 | ED.SKABFB ---
HPI - Skin/Abscess/Foreign Bdy General Chief complaint: Skin/Abscess/Foreign Body Stated complaint: c section, has a lump above the incision site Time Seen by Provider: 05/05/20 18:04 Source: patient Mode of arrival: Ambulatory Limitations: no limitations History of Present Illness HPI narrative: 30-year-old female former smoker presents with her for evaluation of increasing pain and swelling at her site. She delivered by just less than 1 month ago and developed swelling, pain redness and a small amount of drainage from her incision site over the past few days. She denies nausea, vomiting or diarrhea. She has had no vaginal bleeding or discharge. She has subjectively felt warm and was sweaty during sleep last night. The drainage has been minimal and clear per her report. MD complaint: abscess/boil Onset (ago): day(s) Tetanus up to date: yes Location: generalized (Suprapubic and site) Severity: moderate Quality: aching Pain Consistency: constant Relieving factors: rest Exacerbating factors: palpation and movement Context: other Associated symptoms: fever and itching Treatments prior to arrival: none Related Data Previous Rx's Medication Instructions Recorded docusate sodium 250 mg PO DAILY #30 cap 04/11/20 ferrous gluconate 324 mg PO BID #60 tab 04/11/20 ibuprofen 600 mg PO Q6HR PRN #30 tab 04/11/20 oxycodone 5 mg PO Q4HR PRN #20 tab 04/11/20 vit,[id number] 1 tab PO DAILY #30 tab 04/11/20 [Prenatabs Rx] cephalexin [Keflex] 500 mg PO QID 7 Days #28 cap 05/05/20 Allergies Allergy/AdvReac Type Severity Reaction Status Date / Time No Known Drug Allergies Allergy Verified 05/05/20 17:08 Review of Systems Constitutional Constitutional: Denies chills, Denies fatigue, Denies fever(s), Denies frequent falls, Denies lethargy and Denies weakness Eyes Eyes: Denies change in vision, Denies eye discharge, Denies irritation and Denies loss of vision ENT Ears, Nose, Mouth, and Throat: Denies change in voice, Denies dizziness, Denies neck pain, Denies sore throat and Denies throat swelling Cardiovascular Cardiovascular: Denies chest pain, Denies irregular heart rhythm, Denies lightheadedness, Denies palpitations, Denies dyspnea, Denies dyspnea on exertion and Denies orthopnea Respiratory Respiratory: Denies cough, Denies dyspnea, Denies dyspnea on exertion and Denies wheezing Gastrointestinal Gastrointestinal: Denies abdominal pain, Denies change in bowel habits, Denies diarrhea, Denies nausea and Denies vomiting Musculoskeletal Musculoskeletal: Denies neck pain and Denies numbness Integumentary/Breasts Skin/Breast: Denies pruritus, Reports erythema, Denies rash, Reports skin pain, Reports skin swelling and Reports wounds Neurologic Neurologic: Denies behavioral changes, Denies confusion, Denies dizziness, Denies frequent falls, Denies loss of vision, Denies numbness and Denies weakness Psychiatric Psychiatric: Denies anxiety, Denies behavioral changes, Denies confusion, Denies depression, Denies homicidal ideation and Denies suicidal ideation Endocrine Endocrine: Denies fatigue, Denies flushing and Denies palpitations Hematologic/Lymphatic Hematologic/Lymphatic: Denies easy bruising Allergic/Immunologic Allergic/Immunologic: Denies urticaria, Denies throat swelling and Denies wheezing Patient History Medical History (Updated 05/05/20 @ 21:51 by Lashanda Finnegan DO) Anemia (Acute) Feeling of sadness (Acute) Fracture of left patella (Acute) Surgical History (Updated 05/05/20 @ 21:56 by Lashanda Finnegan DO) S/P (Acute) [place] teeth extracted (Acute) Family History Mother Prediabetes Grandfather Acute alcohol abuse Grandmother Alzheimer disease Family/Other No problems noted. Social History marital status: unmarried,living together (Not living together) household members: significant other (Fairly new relationship) education level: high school occupational status: employed ([employer]) current occupational exposures/hazards: No special arjun needs: No Smoking Status: Former smoker alcohol intake: former (Before ) substance use type: marijuana (Before ) Smoking Status: Former smoker Exam Narrative Exam Narrative: GENERAL: [30] year old patient appears stated age. Well-nourished, well-developed patient, in mild distress. HEAD: Atraumatic. Normocephalic. EYES: Pupils equal round and reactive. Extraocular motions intact. No scleral icterus. No injection or drainage. ENT: Nose without bleeding, purulent drainage. Throat without erythema, tonsillar hypertrophy or exudate. Airway patent. NECK: Trachea midline. Non tender CARDIOVASCULAR: Mildly tachycardic with regular rhythm without murmurs, gallops, or rubs. RESPIRATORY: Clear to auscultation. Breath sounds equal bilaterally. No wheezes, rales, or rhonchi. GASTROINTESTINAL: Abdomen soft, minimal erythema on superior aspect of incision. Small area of dehiscence with suture material visible, minimal clear drainage. Swelling induration and tenderness along the right 3rd of the incision with no obvious fluctuance EXTREMITIES: No edema or joint tenderness. BACK: Nontender without deformity or crepitance. No flank tenderness. NEURO: AOx3. SKIN: No rash or erythema of visible areas Initial Vital Signs Initial Vital Signs: Vital Signs Temperature 99.1 F 05/05/20 17:08 Pulse Rate 106 H 05/05/20 17:08 Respiratory Rate 15 05/05/20 17:08 Blood Pressure 156/93 H 05/05/20 17:08 Pulse Oximetry 100 05/05/20 17:08 Course Orders Ordered: ED Orders 05/05/20 18:38 Basic Metabolic Panel Stat Complete Blood Count AUTO DIFF Stat Lactate (Lactic Acid) Stat Procalcitonin Stat 05/05/20 18:54 Blood Culture Stat 05/05/20 19:16 CT abdomen pelvis w con Stat Discontinued Medications Cefazolin Sodium (Keflex 250 Mg Prepack) 1 bottle [facility] Stop: 05/05/20 20:58 Last Admin: 05/05/20 21:08 Dose: 1 1000units Documented by: BRANDAN Sodium Chloride (Normal Saline 0.9%) 1,000 mls @ 1,000 mls/hr IV BOLUS ONE Stop: 05/05/20 19:19 Last Infusion: 05/05/20 20:38 Dose: 0 mls/hr Documented by: Admin: 05/05/20 19:00 Dose: 1,000 mls/hr Documented by: ALICIA Consultations Consultation #1: patient seen at the bedside by Dr. Finnegan. See her note for details. Vital Signs Vital signs: Vital Signs - 8 hr 05/05/20 17:08 05/05/20 18:40 05/05/20 18:41 Temperature 99.1 F Pulse Rate 106 H 90 89 Respiratory Rate 15 Blood Pressure 156/93 H 125/80 Pulse Oximetry 100 100 100 05/05/20 19:00 05/05/20 19:30 05/05/20 19:44 Temperature Pulse Rate 93 H 82 89 Respiratory Rate Blood Pressure 126/67 117/69 Pulse Oximetry 100 100 100 05/05/20 20:00 05/05/20 20:10 05/05/20 20:30 Temperature Pulse Rate 83 90 97 H Respiratory Rate Blood Pressure 101/62 141/76 H Pulse Oximetry 100 100 100 MDM - Skin/Abscess/Foreign Bdy Lab Data Result diagrams: 05/05/20 18:38 05/05/20 18:38 Labs: Lab Results 05/05/20 05/05/20 05/05/20 Range/Units 18:38 18:38 18:38 WBC 9.1 (4.5-11.0) X10^3/uL RBC 5.14 (4.0-5.2) X10^6/uL Hgb 10.5 L (12.0-16.0) g/dL Hct 33.2 L (36-46) % MCV 64.6 L (80-100) fL MCH 20.5 L (26-34) PG MCHC 31.7 (30-36) % RDW 25.3 H (11.6-14.8) % Plt Count 301 (150-400) X10^3/uL Neut % (Auto) 60.1 (50-75) % Lymph % (Auto) 29.9 (25-40) % [place] % (Auto) 7.3 (3-14) % Eos % (Auto) 1.8 L (2-4) % Baso % (Auto) 0.9 (0-2) % Neut # (Auto) 5500 (5484-8224) /uL Lymph # (Auto) 2700 (7076-5512) /uL [place] # (Auto) 700 (0-900) /uL Eos # (Auto) 200 (0-450) /uL Baso # (Auto) 100 (0-100) /uL RBC Morphology See below Poikilocytosis 1+ H Anisocytosis 3+ H Microcytosis 2+ H Sodium 140 (137-145) mmol/L Potassium 3.7 (3.4-5.1) mmol/L Chloride 105 (98-107) mmol/L Carbon Dioxide 28 (22-32) mmol/L BUN 10 (7-17) mg/dL Creatinine 0.71 (0.52-1.04) mg/dL Estimated GFR > 60.0 (>60) mL/min BUN/Creatinine Ratio 14.1 (6-22) Glucose 94 (70-100) mg/dL Lactate (0.7-2.1) mmol/L Calcium 9.4 (8.4-10.2) mg/dL Procalcitonin < 0.05 (<0.5) ng/mL 05/05/20 Range/Units 18:38 WBC (4.5-11.0) X10^3/uL RBC (4.0-5.2) X10^6/uL Hgb (12.0-16.0) g/dL Hct (36-46) % MCV (80-100) fL MCH (26-34) PG MCHC (30-36) % RDW (11.6-14.8) % Plt Count (150-400) X10^3/uL Neut % (Auto) (50-75) % Lymph % (Auto) (25-40) % [place] % (Auto) (3-14) % Eos % (Auto) (2-4) % Baso % (Auto) (0-2) % Neut # (Auto) (0272-7069) /uL Lymph # (Auto) (6823-3658) /uL [place] # (Auto) (0-900) /uL Eos # (Auto) (0-450) /uL Baso # (Auto) (0-100) /uL RBC Morphology Poikilocytosis Anisocytosis Microcytosis Sodium (137-145) mmol/L Potassium (3.4-5.1) mmol/L Chloride (98-107) mmol/L Carbon Dioxide (22-32) mmol/L BUN (7-17) mg/dL Creatinine (0.52-1.04) mg/dL Estimated GFR (>60) mL/min BUN/Creatinine Ratio (6-22) Glucose (70-100) mg/dL Lactate 1.1 (0.7-2.1) mmol/L Calcium (8.4-10.2) mg/dL Procalcitonin (<0.5) ng/mL Urine Dip Bedside Urine Glucose Negative Bedside Urine Bilirubin - Negative Bedside Urine Ketone - Negative Urine Specific [place] 1.010 Bedside Urine Occult Blood - Negative Bedside Urine pH 6.5 Bedside Urine Protein - Negative Bedside Urine Urobilinogen - Negative Bedside Urine Nitrite - Negative Bedside Urine Leukocytes - Negative Esterase Imaging Data CT scan - abdomen/pelvis: Radiologist's Impression: Tenisha Hernandez 30 F [address] [address] [address] Scan Report Signed Patient: Tenisha Hernandez RMR#: [id number] : 1990Acct:[id number] Age/Sex: te of Service: 05/05/20 Loc: ED Accession Number: [id number] Procedure: CT abdomen pelvis w con Ordering Provider: Jw Clark D.O. PROCEDURE: CT ABDOMEN PELVIS W CON INDICATIONS: pain, swelling, redness, drainage from C section site TECHNIQUE: After the administration of intravenous contrast, 5 mm thick sections acquired from the diaphragm to the symphysis. 5 mm coronal and sagittal reformats were acquired. For radiation dose reduction, the following was used: automated exposure control, adjustment of mA and/or kV according to patient size. COMPARISON: None. FINDINGS: Image quality: Excellent. ABDOMEN: Lung bases: Lung bases are clear. Heart size is normal. Solid organs: Liver is normal in size and enhancement. Gallbladder is within normal limits. Biliary system is non dilated. Pancreas enhances normally. Spleen is normal in size and enhancement. No adrenal nodules. Kidneys demonstrate normal size and enhancement, without hydronephrosis. Peritoneum and bowel: Bowel loops demonstrate normal wall thickness and caliber. No free fluid or air. Fecal stasis in the colon is seen extending to the rectum suggestive of mild constipation and fecal impaction. Nodes and vessels: No retroperitoneal or mesenteric adenopathy by size criteria. Aorta and inferior vena cava are normal in size. Miscellaneous: Small umbilical hernia is seen containing fat only. PELVIS: Genitourinary: Bladder wall thickness is normal. Miscellaneous: No inguinal hernias or adenopathy. Bulky appearing uterus is seen. Asymmetric enlargement of right rectus abdominus muscle near midline is seen with ill-defined soft tissue density in right lower anterior pelvic wall just lateral to the midline and measures up to 6.1 x 1.8 x 4 cm in size most likely represent postsurgical changes from recent section. No discrete drainable fluid collection is noted. Bones: No suspicious bony lesions. No vertebral body compression fractures. IMPRESSION: 1. Postsurgical changes in right anterior abdominal wall just lateral to the midline with asymmetrically enlarged right rectus abdominus muscle and overlying deep soft tissue stranding and soft tissue density as above. No discrete drainable fluid collection is seen. 2. No pelvic free fluid or free air. No evidence of bowel obstruction. Mild to moderate constipation and fecal impaction as above. Dictated by: Adolfo Rae M.D. on 05/05/2020 at 19:56 Approved by: Adolfo Rae M.D. on 05/05/2020 at 19:59 Discharge Plan Departure Patient Disposition: Home Clinical Impression: Cellulitis Qualifiers: Site of cellulitis: unspecified site Qualified Code(s): L03.90 - Cellulitis, unspecified Abdominal wound dehiscence Qualifiers: Encounter type: initial encounter Qualified Code(s): T81.30XA - Disruption of wound, unspecified, initial encounter Discharge Date/Time: 05/05/20 21:14 Instructions: DI for Wound Infection Activity Restrictions/Additional Instructions: *You have been diagnosed with [ mild surgical wound cellulitis ] *What to do: *Take medications as directed: Your prescription was sent to [facility] at your request *Follow up with Dr. Finnegan at the time the two of you discussed *Return to ER if you should have any new, worsening or concerning symptoms Prescriptions: New cephalexin [Keflex] 500 mg capsule 500 mg PO QID 7 Days Qty: 28 RF: 0 No Action ibuprofen 600 mg Tablet 600 mg PO Q6HR PRN (Reason: Fever/Mild Pain (1-3)) Qty: 30 RF: 0 docusate sodium 250 mg Capsule 250 mg PO DAILY Qty: 30 RF: 0 oxycodone 5 mg Tablet 5 mg PO Q4HR PRN (Reason: Pain, Moderate (4-6)) Qty: 20 RF: 0 ferrous gluconate 324 mg (38 mg iron) Tablet 324 mg PO BID Qty: 60 RF: 0 Prenatabs Rx 29 mg iron- 1 mg Tablet 1 tab PO DAILY Qty: 30 RF: 0 Referrals: Lashanda Finnegan DO [Primary Care Provider] -
[2020-05-05 19:19] LABS: BUN Creatinine Ratio 14.1 (6-22); Blood Urea Nitrogen 10 mg/dL (7-17); Calcium 9.4 mg/dL (8.4-10.2); Carbon Dioxide 28 mmol/L (22-32); Chloride 105 mmol/L (98-107); Estimated Glomerular Filt Rate > 60.0 mL/min (>60); Glucose 94 mg/dL (70-100); HEMOLYSIS < 15 (0-50); Potassium 3.7 mmol/L (3.4-5.1); Sodium 140 mmol/L (137-145)
[2020-05-05 19:31] LABS: Anisocytosis 3+; Microcytosis 2+; Poikilocytosis 1+
[2020-05-05 19:35] LABS: Procalcitonin < 0.05 ng/mL (<0.5)
[2020-05-05] MEDS: cephALEXin 250 MG PREPACK 1 BOTTLE MISC (21:08)
--- NOTE | 2020-05-05 21:31 | PM.CN ---
History of Present Illness Consult details Date Patient Seen: 05/05/20 Time Patient Seen: 20:45 Chief complaint: c section, has a lump above the incision site Reason for consult: Post-op complication Requesting provider: Jw Clark Narrative: Patient is a 30 year old 4 weeks after primary now with 3-4 days of increasing swelling, redness and mild pain on the right side of her incision. There was been a small amount of clear fluid coming from the middle of the incision with exposed suture. She had been healing well and worries she was too active the last week since she was feeling good. Vaginal bleeding has resolved with the exception of occasional spotting. Denies fevers, chills, nausea, vomiting or diarrhea. She went to a walk in clinic on [facility] today and was advised to go to the ER. In the ER labs were normal and she was afebrile. CT scan showed postsurgical changes in the abdominal wall and rectus muscles but no discrete abscess. Meds Home Medications and Allergies Home Medications Medication Instructions Recorded Confirmed Type docusate sodium 250 mg PO DAILY #30 cap 04/11/20 Rx ferrous gluconate 324 mg PO BID #60 tab 04/11/20 Rx ibuprofen 600 mg PO Q6HR PRN #30 tab 04/11/20 Rx oxycodone 5 mg PO Q4HR PRN #20 tab 04/11/20 Rx vit,[id number] 1 tab PO DAILY #30 tab 04/11/20 Rx [Prenatabs Rx] cephalexin [Keflex] 500 mg PO QID 7 Days #28 cap 05/05/20 Rx Allergies Allergy/AdvReac Type Severity Reaction Status Date / Time No Known Drug Allergies Allergy Verified 05/05/20 17:08 Review of Systems Constitutional Constitutional: Denies fatigue and Denies fever(s) Gastrointestinal Gastrointestinal: Denies abdominal pain, Denies loose stools, Denies nausea and Denies vomiting Genitourinary Genitourinary: Denies abnormal vaginal bleeding Endocrine Endocrine: Denies fatigue Exam Vital Signs (past 8 hours): - 05/05/20 17:08 05/05/20 18:40 05/05/20 18:41 Temperature 99.1 F Pulse Rate 106 H 90 89 Respiratory Rate 15 Blood Pressure 156/93 H 125/80 Pulse Oximetry 100 100 100 05/05/20 19:00 05/05/20 19:30 05/05/20 19:44 Temperature Pulse Rate 93 H 82 89 Respiratory Rate Blood Pressure 126/67 117/69 Pulse Oximetry 100 100 100 05/05/20 20:00 05/05/20 20:10 05/05/20 20:30 Temperature Pulse Rate 83 90 97 H Respiratory Rate Blood Pressure 101/62 141/76 H Pulse Oximetry 100 100 100 Oxygen Delivery Method Room Air Narrative Exam Narrative: General appearance: Wll-appearing, comfortably resting in bed. Alert, appears stated age, cooperative. Head: Normocephalic, atraumatic, without obvious abnormality. Eyes: Conjunctivae/corneas clear. PERRL, EOM's intact. Ears: External ears normal bilaterally. Nose: Nares normal. Mucosa pink and moist. Throat: Moist mucosa. Neck: No adenopathy, supple, symmetric, trachea midline. Lungs: Clear to auscultation bilaterally, no wheezes or crackles. Heart: Regular rate and rhythm, S1, S2 normal, no murmur. Abdomen: Bowel tones active x4. Abdomen is ND/NT. Healing low transverse abdominal incision. 1 cm exposed suture at the midline with minimal erythema and a small amount of clear fluid. On the right side of the incision is an approximately 3x5 cm mildly tender area of induration without flutuance with very slight overlying erythema. Exposed suture was cut and removed easily from the right side of the incision. Suture clipped but not removed from tissue on left. Extremities: Extremities normal, atraumatic, no edema. Neurologic: Normal coordination and gait. Objective Labs Result Diagrams: 05/05/20 18:38 05/05/20 18:38 Labs: Laboratory Results - last 24 hr 05/05/20 05/05/20 05/05/20 18:38 18:38 18:38 WBC 9.1 RBC 5.14 Hgb 10.5 L Hct 33.2 L MCV 64.6 L MCH 20.5 L MCHC 31.7 RDW 25.3 H Plt Count 301 Neut % (Auto) 60.1 Lymph % (Auto) 29.9 [place] % (Auto) 7.3 Eos % (Auto) 1.8 L Baso % (Auto) 0.9 Neut # (Auto) 5500 Lymph # (Auto) 2700 [place] # (Auto) 700 Eos # (Auto) 200 Baso # (Auto) 100 RBC Morphology See below Poikilocytosis 1+ H Anisocytosis 3+ H Microcytosis 2+ H Sodium 140 Potassium 3.7 Chloride 105 Carbon Dioxide 28 BUN 10 Creatinine 0.71 Estimated GFR > 60.0 BUN/Creatinine Ratio 14.1 Glucose 94 Lactate Calcium 9.4 Procalcitonin < 0.05 05/05/20 18:38 WBC RBC Hgb Hct MCV MCH MCHC RDW Plt Count Neut % (Auto) Lymph % (Auto) [place] % (Auto) Eos % (Auto) Baso % (Auto) Neut # (Auto) Lymph # (Auto) [place] # (Auto) Eos # (Auto) Baso # (Auto) RBC Morphology Poikilocytosis Anisocytosis Microcytosis Sodium Potassium Chloride Carbon Dioxide BUN Creatinine Estimated GFR BUN/Creatinine Ratio Glucose Lactate 1.1 Calcium Procalcitonin Assessment & Plan Assessment and plan (1) Cellulitis: Qualifiers: Site of cellulitis: unspecified site Qualified Code(s): L03.90 - Cellulitis, unspecified Status: Acute (2) Abdominal wound dehiscence: Qualifiers: Encounter type: initial encounter Qualified Code(s): T81.30XA - Disruption of wound, unspecified, initial encounter Status: Acute (3) S/P : Status: Acute Assessment & Plan narrative: 30 year old 4 weeks after primary now with mild erythema and induration of the incision concerning for developing cellulitis. Very minimal wound dehiscence where 1 cm of suture was exposed and now removed. Patient is afebrile with normal labs. CT with expected post-op changes but no discrete abscess. Recommended Keflex 500 mg QID x7 days. Follow up in clinic next week for re-evaluation. Patient was advised to call with any changes such as fevers, worsening pain or increased drainage.
== END 2020-05-05 21:14 | disposition home or self-care (01) ==
PROVIDERS: Emergency Provider Emergency Medicine; PCP Family Medicine
DX: L03.90 Cellulitis, unspecified (principal); T81.30XA Disruption of wound, unspecified, initial encounter; Z98.891 History of uterine scar from previous surgery
CPT/HCPCS: 36415; 74177; 80048; 81003; 83605; 84145; 85025; 87040; 96360; 96361; 99284; Q9967

== ENCOUNTER → 2020-12-21 09:10 | Outpatient (CLI) | payer OTHER, MEDICAID, SELFPAY ==
--- NOTE | 2020-12-21 09:13 | DI.US.S_ITS ---
PROCEDURE: US OB >= 14 WEEKS FETUS INDICATIONS: ANATOMY OUTSIDE/PRIOR DATING DATA: First dating scan (date and location): 12/21/2020 . Estimated date of delivery (BECKI) from first dating scan: 04/29/2021 . TECHNIQUE: Real-time scanning was performed of the fetus, with image documentation and biometric measurements. Endovaginal scanning: No COMPARISON: None. FINDINGS: General: A single living intrauterine gestation is present. Presentation: Variable. Placenta: Placental position is anterior , without previa. Amniotic fluid index: 14.6 cm, normal range is 5-24 cm. heart rate: heart tones are visualized; however no heart rate was obtained. Maternal cervical canal: 5.6 cm cm long. Normal lower limit is 2.5 cm. biometrics: Biparietal diameter: 22 weeks Head circumference: 21 weeks 6 days Abdominal circumference: 21 weeks 4 days Femur length: 21 weeks Estimated gestational age from initial scan: not applicable. Composite gestational age from present scan: 21 weeks 4 days Estimated weight and percentile: 417 g Measurement variability for biometric dating: +/- 7 days from 14 weeks to 15 weeks 6 days gestation, +/- 10 days from 16 weeks to 21 weeks 6 days gestation, +/- 2 weeks from 22 weeks to 27 weeks 6 days gestation, +/- 3 weeks for 28 weeks gestation or later. weight reference: 4500 g or EFW >90/95% is considered macrosomia or large for gestational age. EFW <10% is small for gestational age. EFW 5% or less is considered intra-uterine growth restriction. Anatomic survey: Neuro: Ventricles are non-dilated at less than 10 mm. Cisterna magna is normal at 3-11 mm. Cerebellum is normal in size and morphology. Nuchal skin fold: Normal at less than 6 mm between 14-21 weeks gestational age. Face: Nose and lips, facial profile are normal. Spine: No evidence for spina bifida. Heart: 4-chambered heart is present, with normal ventricular outflow tracts. Diaphragm: Diaphragm is intact. Stomach: Left-sided stomach is present. Kidneys: No hydronephrosis. Normal is less than 5 mm in 2nd trimester, less than 7 mm in 3rd trimester. Cord: 3-vessel cord has orthotopic insertion. Bladder: Normal in size. Extremities: All 4 extremities identified. IMPRESSION : 21 week 4 day single living IUP corresponding to ultrasound BECKI of 04/29/2021. Normal anatomic survey. Dictated by: Mango MUSA Interpreted: Lorri Bruner MD on 12/22/2020 at 11:11 Approved by: Lorri Bruner M.D. on 12/22/2020 at 12:38
[2020-12-21 10:58] LABS: Add Manual Diff / Slide Review NO; Basophils Absolute Auto 100 /uL (0-100); Basophils Percent Auto 0.8 % (0-2); Eosinophils Absolute Auto 100 /uL (0-450); Eosinophils Percent Auto 0.8 % (2-4); Hemoglobin 11.3 g/dL (12.0-16.0); Lymphocytes Absolute Auto 2600 /uL (1100-4500); Lymphocytes Percent Auto 27.5 % (25-40); Mean Corpuscular HGB Conc 32.2 % (30-36); Mean Corpuscular Hemoglobin 22.8 PG (26-34); Mean Corpuscular Volume 70.9 fL (80-100); Monocytes Absolute Auto 700 /uL (0-900); Monocytes Percent Auto 7.8 % (3-14); Neutrophils Absolute Auto 5900 /uL (1500-7000); Neutrophils Percent Auto 63.1 % (50-75); Platelet Count 276 X10^3/uL (150-400); Red Blood Cell Count 4.94 X10^6/uL (4.0-5.2); Red Cell Distribution Width 14.7 % (11.6-14.8); White Blood Cell Count 9.3 X10^3/uL (4.5-11.0)
[2020-12-21 15:59] LABS: Hepatitis B Surface Antigen NEGATIVE s/c (NEGATIVE); Rubella Antibody IgG 17.9 IU/mL (>15)
[2020-12-21 16:16] LABS: HIV 1 & 2 Ab/Ag 4th Gen Combo NEGATIVE (NEGATIVE); Hep C Virus Ab w/Reflex Quant NEGATIVE s/c (NEGATIVE)
[2020-12-21 18:11] LABS: Appearance Urine UA CLEAR; Bilirubin Urine UA NEGATIVE (NEGATIVE); Color Urine UA YELLOW; Glucose Urine UA NEGATIVE (Negative); Ketones Urine UA NEGATIVE (NEGATIVE); Leukocyte Esterase Urine UA NEGATIVE (NEGATIVE); Nitrite Urine UA POSITIVE (Negative); Occult Blood Urine UA NEGATIVE (Negative); Protein Urine UA NEGATIVE (Negative); Specific Gravity Urine UA 1.015 (1.000-1.035); Urobilinogen Urine UA 0.2 E.U./dL (0.2)
[2020-12-21 18:12] LABS: pH Urine UA 7.5 (4.5-8.0)
[2020-12-21 18:13] LABS: RBC Urine None Seen (0-5/HPF)
[2020-12-21 18:22] LABS: Bacteria Urine Few (2-10); Squamous Epithelial Cell Urine 0-1 /HPF (0-5/HPF); WBC Urine 0-1/HPF (0-5/HPF)
[2020-12-22 07:10] LABS: RPR Screen Non Reactive (Non Reactive)
[2020-12-22 14:22] LABS: Varicella IgG Antibody 641 index (Immune >165)
== END ==
PROVIDERS: PCP Family Medicine; Referring Provider Family Medicine; Visit Provider Family Medicine
DX: Z34.82 Encounter for supervision of other normal pregnancy, second trimester (principal); Z3A.21 21 weeks gestation of pregnancy
CPT/HCPCS: 36415; 76811; 80055; 81003; 81015; 86787; 86803; 86850; 86900; 86901; 87086; 87389

== ENCOUNTER → 2021-02-08 12:33 | Outpatient (CLI) | payer OTHER, MEDICAID, SELFPAY ==
[2021-02-08 13:09] LABS: Add Manual Diff / Slide Review NO; Basophils Absolute Auto 100 /uL (0-100); Basophils Percent Auto 0.7 % (0-2); Eosinophils Absolute Auto 100 /uL (0-450); Eosinophils Percent Auto 0.7 % (2-4); Hematocrit 32.5 % (36-46); Hemoglobin 10.4 g/dL (12.0-16.0); Lymphocytes Absolute Auto 2200 /uL (1100-4500); Lymphocytes Percent Auto 21.9 % (25-40); Mean Corpuscular Hemoglobin 21.4 PG (26-34); Mean Corpuscular Volume 66.9 fL (80-100); Monocytes Absolute Auto 800 /uL (0-900); Monocytes Percent Auto 8.1 % (3-14); Neutrophils Absolute Auto 7000 /uL (1500-7000); Neutrophils Percent Auto 68.6 % (50-75); Platelet Count 256 X10^3/uL (150-400); Red Blood Cell Count 4.86 X10^6/uL (4.0-5.2); Red Cell Distribution Width 15.4 % (11.6-14.8); White Blood Cell Count 10.2 X10^3/uL (4.5-11.0)
[2021-02-08 13:36] LABS: Hypochromasia 1+; Polychromasia 1+
[2021-02-08 13:37] LABS: Anisocytosis 1+; Microcytosis 2+
== END ==
PROVIDERS: PCP Family Medicine; Referring Provider Family Medicine; Visit Provider Family Medicine
DX: Z34.90 Encounter for supervision of normal pregnancy, unspecified, unspecified trimester (principal); Z3A.28 28 weeks gestation of pregnancy
CPT/HCPCS: 36415; 85025

== ENCOUNTER 2021-03-02 10:34 | Outpatient (CLI) | payer OTHER, MEDICAID, SELFPAY ==
--- NOTE | 2021-03-02 11:23 | PM.OBTRLD ---
Visit Information Visit Information Date of evaluation: 03/02/21 Primary OB Provider: Lashanda Finnegan Reason for Evaluation: Yes non-stress test non-stress test reason: hypertension/pre-eclampsia Comments/Additional reasons for admission: Patient comes in to the center due to elevated blood pressure at scheduled OB appointment. Denies headache, vision changes, edema or abdominal pain. She was induced her last for gestational hypertension. Vital Signs Vital Signs: Temperature 36.4? blood pressure 105/56 heart rate 87 PFSH Medical History Anemia Feeling of sadness Fracture of left patella Post depression (~04/2020) Surgical History S/P (~04/08/20) [place] teeth extracted Family History Mother Prediabetes Grandfather Acute alcohol abuse Grandmother Alzheimer disease Family/Other No problems noted. Father No problems noted. Grandfather No problems noted. Grandmother No problems noted. Social History marital status: unmarried,living together number of children: 1 household members: significant other (Dhiraj is her Fiance) lives independently: Yes pets and animals: No education level: high school occupational status: employed ([employer] on weekends : Friday and Friday ) current occupational exposures/hazards: No special arjun needs: No Smoking Status: Former smoker (Quit June 2019 with diagnosis) Tobacco: How many years used: 5 alcohol intake: former (Pre- : occasional ) substance use type: does not use and marijuana (Before 2018) Objective Labs Result Diagrams: 03/02/21 11:25 03/02/21 11:25 Evaluation Evaluation Baseline heart rate: 130 Variability: Moderate (11-25) monitor accelerations: Present Monitor Decelerations: Absent Category of Tracing: Reactive Diagnosis, Plan/Disposition Final Diagnosis (1) 31 weeks gestation of : Status: Acute Plan/Disposition Plan: 31-year-old at 31 weeks and 5 days gestation with concern for hypertension. Blood pressures were all normal in the center. CBC, CMP and urine microalbumin creatinine ratio also normal. NST reactive. Patient will discharge home and begin monitoring home blood pressures. She was advised to call for elevated blood pressure or symptoms of preeclampsia which is quite familiar with from her last . OB Disposition: home
[2021-03-02 11:35] LABS: Add Manual Diff / Slide Review NO; Basophils Absolute Auto 100 /uL (0-100); Basophils Percent Auto 1.1 % (0-2); Eosinophils Absolute Auto 100 /uL (0-450); Hematocrit 31.5 % (36-46); Hemoglobin 10.1 g/dL (12.0-16.0); Lymphocytes Absolute Auto 2900 /uL (1100-4500); Lymphocytes Percent Auto 26.6 % (25-40); Mean Corpuscular Hemoglobin 20.7 PG (26-34); Mean Corpuscular Volume 64.8 fL (80-100); Monocytes Absolute Auto 900 /uL (0-900); Monocytes Percent Auto 8.2 % (3-14); Neutrophils Absolute Auto 6800 /uL (1500-7000); Neutrophils Percent Auto 63.1 % (50-75); Platelet Count 235 X10^3/uL (150-400); Red Blood Cell Count 4.86 X10^6/uL (4.0-5.2); White Blood Cell Count 10.8 X10^3/uL (4.5-11.0)
[2021-03-02 11:44] LABS: Alanine Aminotransferase 14 IU/L (<35); Albumin 3.7 g/dL (3.5-5.0); Albumin Globulin Ratio 1.2 (1.0-2.8); Alkaline Phosphatase 109 U/L (38-126); Aspartate Aminotransferase 23 IU/L (14-36); BUN Creatinine Ratio 11.9 (6-22); Bilirubin Total 0.2 mg/dL (0.2-1.3); Blood Urea Nitrogen 5 mg/dL (7-17); Calcium 8.8 mg/dL (8.4-10.2); Carbon Dioxide 23 mmol/L (22-32); Chloride 104 mmol/L (98-107); Estimated Glomerular Filt Rate > 60.0 mL/min (>60); Globulin 3.1 g/dL (1.7-4.1); Glucose 89 mg/dL (70-100); HEMOLYSIS < 15 (0-50); Sodium 132 mmol/L (137-145); Total Protein 6.8 g/dL (6.3-8.2)
[2021-03-02 11:51] LABS: Anisocytosis 1+; Poikilocytosis 1+
[2021-03-02 15:28] LABS: Creatinine Urine Random 51.5 mg/dL
[2021-03-02 15:40] LABS: Microalbumin Urine Random < 0.6 mg/dL (0-1.6)
== END 2021-03-02 11:53 | disposition home or self-care (01) ==
LOC: LABOR 10:42 → OB 03-05 08:05
PROVIDERS: PCP Family Medicine; Referring Provider Family Medicine; Visit Provider Family Medicine
DX: O26.893 Other specified pregnancy related conditions, third trimester (principal); R03.0 Elevated blood-pressure reading, without diagnosis of hypertension; Z3A.31 31 weeks gestation of pregnancy
CPT/HCPCS: 59025; 80053; 82043; 82570; 85025; G0378; G0379

== ENCOUNTER → 2021-04-06 09:40 | Outpatient (CLI) | payer OTHER, MEDICAID, SELFPAY ==
--- NOTE | 2021-04-06 09:43 | DI.US.S_ITS ---
PROCEDURE: US OB LIMITED INDICATIONS: SIZE LARGER THAN DATES OUTSIDE/PRIOR DATING DATA: Last menstrual period (LMP): Unknown . LMP-based estimated date of delivery (BECKI): Unknown . First dating scan (date and location): 12/21/2020, [facility] . Estimated date of delivery (BECKI) from first dating scan: 04/29/2021 . TECHNIQUE: Real-time scanning was performed of the fetus, with image documentation. Endovaginal scanning: Not performed COMPARISON: None. FINDINGS: A single living intrauterine gestation is present. Presentation: Vertex. Placenta: Placental position is anterior, without previa. Amniotic fluid index: 16.4 cm, normal range is 5-24 cm. heart rate: 149 beats per minute. Maternal cervical canal: 5.2 cm long. Normal lower limit is 2.5 cm. Estimated gestational age from initial scan: 36 week 5 day . Composite gestational age today: 35 week 6 day Estimated weight: 2494 g Biometrics: Biparietal diameter: 9.2 cm, 37 week 4 day Head circumference: 33 cm, 37 week 4 day Abdominal circumference: 29 cm, 33 week 5 day Femur length: 6.7 cm, 34 week 4 day IMPRESSION: Single live intrauterine consistent with 35 week 6 day gestation by today's ultrasound Dictated by: Keith Hayden M.D. on 04/06/2021 at 15:43 Approved by: Keith Hayden M.D. on 04/06/2021 at 15:48
== END ==
PROVIDERS: PCP Family Medicine; Referring Provider Family Medicine; Visit Provider Family Medicine
DX: O36.63X0 Maternal care for excessive fetal growth, third trimester, not applicable or unspecified (principal); Z3A.35 35 weeks gestation of pregnancy
CPT/HCPCS: 76815

== ENCOUNTER → 2021-04-06 10:57 | Outpatient (CLI) | payer OTHER, MEDICAID, SELFPAY ==
[2021-04-08 12:49] LABS: Strep Grp B PCR NEG for Grp B Strep
== END ==
PROVIDERS: PCP Family Medicine; Visit Provider Family Medicine
DX: Z34.90 Encounter for supervision of normal pregnancy, unspecified, unspecified trimester (principal); Z3A.36 36 weeks gestation of pregnancy
CPT/HCPCS: 87653

== ENCOUNTER 2021-04-11 23:11 | Outpatient (CLI) | payer OTHER, MEDICAID, SELFPAY | END 2021-04-12 00:15 | disposition home or self-care (01) | LOC: OB 04-12 09:06 | PROVIDERS: PCP Family Medicine; Referring Provider Specialist; Visit Provider Specialist | DX: O26.893 Other specified pregnancy related conditions, third trimester (principal); R10.9 Unspecified abdominal pain; O21.9 Vomiting of pregnancy, unspecified; Z3A.37 37 weeks gestation of pregnancy | CPT/HCPCS: 59025; G0378; G0379 ==

== ENCOUNTER 2021-04-24 06:24 | Inpatient (IN) | payer OTHER, MEDICAID, SELFPAY ==
--- NOTE | 2021-04-24 06:36 | P.HPOB_ITS ---
OB HPI Date/Time Date of admission: 04/24/21 Date Patient Seen: 04/24/21 Time Patient Seen: 06:45 History of Present Condition Chief complaint: Repeat : 2 Para: 1 Estimated Date of Delivery: 04/29/21 Estimated Gestational Age (weeks): 39w2d Narrative: Tenisha Hernandez is a 31 year old 39 weeks and 2 days gestation here for repeat . care initiated at 20 weeks. She has a history of gestational hypertension and section for failure to descend in her first . Blood pressures have been monitored closely this with normal preeclampsia labs. She lives on [facility]. Indications Operative indications ( section): previous uterine surgery History of Present care: initiated at week # (20), number of visits and pounds weight gain (7) Dating criteria: based on 2nd trimester US only Ultrasounds: normal mid trimester US Obstetrical complications: none Medical complications: none Preadmission Labs Blood type: O (+) positive -: Antibody screen: negative, GBS status: negative, HBsAG: negative, HIV: negative and RPR/VDLR: negative HCT: 31.5 HCAB: negative PAP: Normal Urine: Negative Narrative: Could not tolerate glucola so monitored sugars QID for a month and all within normal limits Prior (ies) History: 04/08/20 39 weeks, primary for failure to descend, 7 lb 14 oz male, [facility] with Dr. Finnegan and Dr. Hernández, attempted to breast feed, Moiz Evaluation Evaluation Baseline heart rate: 130 Variability: Moderate (11-25) monitor accelerations: Present Monitor Decelerations: Absent Category of Tracing: Reactive PFSH Medical History Anemia Feeling of sadness Fracture of left patella Post depression (~04/2020) Surgical History S/P (~04/08/20) [place] teeth extracted Family History Mother Prediabetes Grandfather Acute alcohol abuse Grandmother Alzheimer disease Family/Other No problems noted. Father No problems noted. Grandfather No problems noted. Grandmother No problems noted. 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 ) current occupational exposures/hazards: No special arjun needs: No Smoking Status: Never smoker Tobacco: How many years used: 5 alcohol intake: former (Pre- : occasional ) substance use type: does not use and marijuana (Before 2018) Meds Home Medications and Allergies Home Medications Medication Instructions Recorded Confirmed Type vitamin 1 tab PO DAILY #30 tab 04/11/20 04/24/21 Rx no.76-iron,carbonyl 29 mg iron-folic acid 1 mg tablet (Prenatabs Rx) ferrous gluconate 324 mg (38 mg 324 mg PO DAILY 12/21/20 04/24/21 History iron) tablet blood sugar diagnostic (Blood #100 ea 01/18/21 04/24/21 Rx Glucose Test) blood-glucose meter #1 ea 01/18/21 04/24/21 Rx lancets #100 ea 01/18/21 04/24/21 Rx Allergies Allergy/AdvReac Type Severity Reaction Status Date / Time No Known Drug Allergies Allergy Verified 04/06/21 11:07 Exam Vital Signs (past 8 hours): BP 129/83 P 116 Const General: healthy appearing and comfortable HENMT Head: normal to inspection Ears: hearing grossly normal bilaterally Nose: external nose normal Eyes General: appearance normal, both eyes and all related structures Neck Neck: normal visual inspection Resp Effort & Inspection: normal respiratory effort Auscultation: clear to auscultation bilaterally Cardio Rate: regular rate Rhythm: regular rhythm Heart Sounds: no murmurs GI Other: Gravid Back/Spine/Pelvis Back: normal to inspection Skin General: no rashes or lesions noted Extrem General: normal to inspection and no pedal edema Objective Labs Result Diagrams: 04/24/21 06:40 Assessment and Plan Assessment and Plan Assessment and Plan narrative: 31 year old at 39 weeks and 2 days here for repeat section. complicated by late to care, otherwise uncomplicated. Risks of surgery reviewed with patient and her partner (risk of bleeding, infection, injury to surrounding organs), all questions answered and consent signed. Admit labs and COVID swab now. Ancef 2 g prior to surgery.
[2021-04-24] MEDS: LACTATED RINGERS 1,000 ML 100 ML IV ×2 (06:50→08:20)
[2021-04-24 07:17] VITALS: BP 129/83
[2021-04-24 07:22] LABS: Add Manual Diff / Slide Review NO; Basophils Absolute Auto 200 /uL (0-100); Basophils Percent Auto 1.6 % (0-2); Eosinophils Absolute Auto 100 /uL (0-450); Eosinophils Percent Auto 1.1 % (2-4); Hematocrit 27.6 % (36-46); Hemoglobin 8.6 g/dL (12.0-16.0); Lymphocytes Absolute Auto 2900 /uL (1100-4500); Lymphocytes Percent Auto 31.2 % (25-40); Mean Corpuscular HGB Conc 31.2 % (30-36); Mean Corpuscular Hemoglobin 18.4 PG (26-34); Monocytes Absolute Auto 800 /uL (0-900); Monocytes Percent Auto 8.7 % (3-14); Neutrophils Absolute Auto 5400 /uL (1500-7000); Neutrophils Percent Auto 57.4 % (50-75); Platelet Count 242 X10^3/uL (150-400); Red Blood Cell Count 4.68 X10^6/uL (4.0-5.2); Red Cell Distribution Width 17.5 % (11.6-14.8); White Blood Cell Count 9.4 X10^3/uL (4.5-11.0)
[2021-04-24 07:49] LABS: COVID19 - ADMIT (NP swab/PCR) Negative (Negative)
--- NOTE | 2021-04-24 08:04 | PM.PREOP ---
Pre-operative Note Interval Note History & Physical reviewed/Exam performed by Physician: Yes Changes to H&P: No
[2021-04-24 08:16] LABS: Hypochromasia 2+; Microcytosis 3+; Poikilocytosis 1+
[2021-04-24] MEDS: CEFAZOLIN 1 GM VIAL 2 GM IV (08:35)
[2021-04-24] MEDS: TRIAMCINOLONE 40 MG/ML VIAL IM (08:42)
[2021-04-24] MEDS: ACETAMINOPHEN IV 1,000 MG/100 ML VIAL 400 MG IV (08:42)
--- NOTE | 2021-04-24 08:57 | SUR.OPER ---
Viable male delivered at 08:51. Cord blood vials x2 and placenta sent with L&D RN.
[2021-04-24 09:42] VITALS: BP 130/84; PULSE 90; RESP 12; O2SAT 100
--- NOTE | 2021-04-24 09:46 | PM.OBCS.1 ---
Operative Date/Time/Diagnoses Date of procedure: 04/24/21 Pre-op diagnosis: 39 weeks of History of section Keloid scar Post-op diagnosis: same Procedure & Clinicians Procedure: Repeat low transverse section Keloid scar removal Same procedure as scheduled: Yes Indications: 39 weeks of History of section Keloid scar Surgeon: Lashanda Finnegan Detail Assembler: Aziza Mendieta Reason for Detail Assembler: Dr. Mendieta was present to assist with retraction, suctioning, delivery of and suturing. Operative Notes Findings: Vigorous male infant, normal uterus, tubes and ovaries Closure Type: primary Specimen(s): cord blood Intraoperative meds administered: Pitocin Applied: Catheter Estimated Blood Loss (mL): 500 Procedure in detail: The patient was taken to the operating room where she was placed in the seated position. Spinal anesthesia was administered. She was then placed in the dorsal supine position with a leftward tilt. She was prepped and draped in the usual sterile fashion. A timeout was performed. After spinal analgesia was found to be adequate, an elliptical incision was made around the keloid scar of her previous and removed entirely. Incision was carried through the subcutaneous tissue to the fascia. The fascia was nicked in the midline and the incision extended bilaterally with Johnston scissors. The superior aspect of the fascial incision was grasped with a Arnulfo clamps by Dr. Finnegan and Dr. Mendieta, elevated, and the underlying rectus muscles dissected off sharply and bluntly. Attention was then turned to the inferior aspect of this incision which in a similar fashion was grasped with a Arnulfo clamps, elevated, and the underlying rectus muscles dissected off sharply and bluntly. The rectus muscles were in the midline. The peritoneum was identified, grasped between 2 hemostats, and entered sharply with the Metzenbaum scissors. This incision was extended superiorly and inferiorly with good visualization of the bladder. The bladder blade was inserted. The vesicouterine peritoneum was identified, grasped with the pickup, and entered sharply with the Metzenbaum scissors. This incision was extended bilaterally, and the bladder flap was created digitally. The bladder blade was reinserted. The lower uterine segment was incised in a transverse fashion with the scalpel. Upon entering the amniotic sac there was a small amount clear amniotic fluid. The infant's head was delivered. The remainder of the body delivered without difficulty. The cord was double clamped and cut after one minute delay. The was handed off to waiting RN and RT. The placenta was delivered manually. The uterus was cleared of all clots and debris. The uterine incision was repaired with #1 chromic in a running interlocking fashion by Dr. Finnegan and a second layer the same suture was used for an imbricating layer by Dr. Mendieta. Hemostasis was achieved. The tubes and ovaries were examined and were found to be normal. The gutters were cleared of all clots and debris. The bladder flap was reapproximated using 2-0 Vicryl in a running fashion. The parietal peritoneum was closed using 2-0 Vicryl in a running fashion. The fascia was reapproximated using 0 Vicryl in a running fashion. Subcutaneous layer was copiously irrigated with warm normal saline. The edges of the incision were injected with a total of 10 mg of Kenalog to prevent future keloid formation. 5 simple interrupted sutures of 3-0 Vicryl were placed to reapproximate the subcutaneous layer. The skin was closed with 4-0 undyed Vicryl in a subcuticular fashion. Steri-Strips were placed. An Aquacel dressing was placed. The uterus was expressed of a small amount of old blood. Sponge, lap, and instrument counts were correct. The patient tolerated the procedure well, and was taken to PACU in stable condition. [place] Baby 1: Infant Gender: Male Presentation: vertex Placental Delivery Description: Manual Removal score (1 min): 7 score (5 min): 9 weight: 8 lb 13.096 oz Post-operative Condition: stable Disposition: PACU Aftercare: routine postop
[2021-04-24 09:47] VITALS: BP 123/81; PULSE 100; RESP 16; TEMP 37; O2SAT 100
[2021-04-24 09:52] VITALS: BP 123/81; PULSE 97; RESP 16; TEMP 37; O2SAT 99
[2021-04-24] MEDS: ACETAMINOPHEN 325 MG TABLET 650 MG PO ×2 (12:37→18:41)
[2021-04-24] MEDS: KETOROLAC 30 MG/ML VIAL IV ×2 (15:33→22:09)
[2021-04-24] MEDS: LANOLIN OINT 7 GM 1 APPLIC TOP (22:09)
[2021-04-25] MEDS: ACETAMINOPHEN 325 MG TABLET 650 MG PO ×2 (01:48→09:06)
[2021-04-25] MEDS: KETOROLAC 30 MG/ML VIAL IV (04:29)
[2021-04-25 07:02] LABS: Hematocrit 22.4 % (36-46)
--- NOTE | 2021-04-25 07:30 | PM.OBPN.1 ---
Exam Vital Signs (past 8 hours): Oxygen Delivery Method Room Air Objective Labs Result Diagrams: 04/25/21 06:39 Labs: Laboratory Results - last 24 hr 04/24/21 04/24/21 04/24/21 06:40 06:40 06:40 Hgb Hct RBC Morphology Not Reportable Hypochromasia 2+ H Poikilocytosis 1+ H Microcytosis 3+ H SARS-CoV-2 (PCR) Negative Blood Type O Positive Antibody Screen Negative 04/25/21 06:39 Hgb 7.0 L Hct 22.4 L RBC Morphology Hypochromasia Poikilocytosis Microcytosis SARS-CoV-2 (PCR) Blood Type Antibody Screen Assessment & Plan Time Spent With Patient Time: Total time spent is greater than 50% in coordination of care (as documented) at patient's floor/unit and/or counseling patient:
--- NOTE | 2021-04-25 08:31 | PM.OBDS.1 ---
Discharge Providers Provider Date of admission: 04/24/21 06:24 Discharge Date: 04/25/21 Primary care physician: Lashanda Finnegan DO Consults: 04/24/21 10:32 Consult to Home Demonstration Agent Routine Comment: Discharge provider: Lashanda Finnegan DO Summary Hospital Course Date Patient Seen: 04/25/21 Time Patient Seen: 07:45 Diagnoses: 39 weeks of Repeat low transverse section with keloid scar removal Chronic anemia Acute blood loss anemia Hospital Course: Patient is a 31-year-old G2 now P2 after repeat low transverse section with keloid scar removal on 04/24/21 at 39 weeks and 2 days gestation. was complicated by anemia for which she took iron throughout the . The day of repeat H&H was lower than it had been during the (H&H 8.6/27.6). Postop H&H was 7.0/22.4. She was not tachycardic and denied dizziness or lightheadedness. Given where she started prior to surgery, her H&H did not decrease that much. Discussed the role for blood or iron transfusion, both of which felt unnecessary as patient was asymptomatic. She was given iron in the hospital and will increase to twice a day on discharge. course otherwise uncomplicated. Patient was using Tylenol and ibuprofen only for pain and stated she felt great. Vaginal bleeding light. Patient was ambulating, voiding and passing flatus as well as tolerating a diet. Breast-feeding was going very well. She and her partner were eager to return home and requested discharge home today. Patient was advised to call for fevers, severe pain or bleeding through more than a pad an hour. She will follow-up in clinic on 04/30 for Aquacel dressing removal. Peripartum Data Infant Delivery Method: Section [place] 1: Gender: Male Disposition of : home Status at Discharge Cognitive/behavioral status at discharge: at baseline, oriented Functional status at discharge: independent ambulation Overall status at discharge: patient is progressing back to baseline Time Spent with Patient Time attestation: Total time spent providing and/or coordinating discharge services: Time spent: Less than 30 minutes Objective Labs Result Diagrams: 04/25/21 06:39 Labs: Laboratory Results - last 24 hr 04/25/21 06:39 Hgb 7.0 L Hct 22.4 L Exam Vital Signs (past 8 hours): Oxygen Delivery Method Room Air Temperature 98.6? blood pressure 121/84 heart rate 95 respirations 17 Narrative Exam Narrative: General: Awake and alert, no acute distress. HEENT: NCAT, EOMI, moist oral mucosa CV: Regular rate and rhythm, no murmurs, rubs or gallops Lungs: CTAB, no wheezes, rales, or rhonchi Abdomen: Aquacel dressing intact with minimal drainage. Soft, nontender; bowel tones active; uterus firm 1 cm below umbilicus. Extremities: Warm, no edema bilaterally Discharge Plan Discharge Plan Patient Disposition: Home Provider Discharge Comment: Call for fevers, severe pain or bleeding through more than a pad an hour Discharge orders & Medications Prescriptions: New ibuprofen 600 mg Tablet 600 mg PO Q6H PRN (Reason: Fever/Mild Pain (1-3)) Qty: 30 RF: 0 docusate sodium 250 mg Capsule 250 mg PO DAILY Qty: 30 RF: 0 oxycodone 5 mg Tablet 5 mg PO Q4H PRN (Reason: Pain, Moderate (4-6)) Qty: 10 RF: 0 Continued Prenatabs Rx 29 mg iron- 1 mg Tablet 1 tab PO DAILY Qty: 30 RF: 0 Changed ferrous gluconate 324 mg (38 mg iron) tablet 324 mg PO BID Qty: 0 RF: 0 Discontinued (DME) lancets Misc See Rx Instructions .ROUTE .MEDSUPPLY Qty: 100 RF: 11 (DME) Blood Glucose Test Strip See Rx Instructions .ROUTE .MEDSUPPLY Qty: 100 RF: 11 (DME) blood-glucose meter Misc See Rx Instructions .ROUTE .MEDSUPPLY Qty: 1 RF: 1 Follow up/Referrals: Lashanda Finnegan DO [Primary Care Provider] - 04/30/21 10:00 am (Patient may come when able Friday [place] ferry times. ) Visit Report/Discharge Packet Visit Report Forms: Patient Portal/API, Stroke Signs & Symptoms Discharge Data Primary Care Provider: Lashanda Finnegan
[2021-04-25] MEDS: DOCUSATE 250 MG CAPSULE PO (09:05)
[2021-04-25] MEDS: FERROUS SULFATE 325 MG TABLET PO (09:05)
[2021-04-25] MEDS: PRENATAL VIT,CALC/IRON/FOLIC 1 TABLET 1 TAB PO (09:05)
[2021-04-25 11:05] VITALS: BP 121/84; PULSE 95; RESP 17; TEMP 37
[2021-04-25] MEDS: IBUPROFEN 600 MG TABLET PO (11:21)
[2021-04-25] MEDS: OXYCODONE IR 5 MG TABLET PO (13:58)
== END 2021-04-25 14:17 | disposition home or self-care (01) | DRG 540 ==
PROVIDERS: Admitting Provider Family Medicine; PCP Family Medicine; Referring Provider Obstetrics & Gynecology; Visit Provider Family Medicine
PROC: 10D00Z1 Extraction of Products of Conception, Low, Open Approach (ICD-10-PCS; CPT 59514; principal; 2021-04-24 08:15)
DX: O34.219 Maternal care for unspecified type scar from previous cesarean delivery (principal); Z3A.39 39 weeks gestation of pregnancy; Z37.0 Single live birth; O99.02 Anemia complicating childbirth; D62 Acute posthemorrhagic anemia; D53.9 Nutritional anemia, unspecified; O99.891 Other specified diseases and conditions complicating pregnancy; L91.0 Hypertrophic scar; L90.5 Scar conditions and fibrosis of skin; Z20.822 Contact with and (suspected) exposure to COVID-19
CPT/HCPCS: 36415; 59050; 59514; 85014; 85018; 85025; 86850; 86900; 86901; 87635; C9803; J0131; J0690; J1885; J2274; J2405; J2590; J2765